=== PATIENT | female | born 1950 | race Caucasian/White ===

== ENCOUNTER 2018-07-08 21:27 | Inpatient (IN) | payer MEDICARE, OTHER ==
[~2018-07-08] VITALS: Ht 160 cm; Wt 72.3 kg
[~2018-07-08 21:27] MED LIST: ASPI-1265 PO; ATOR20TA66 PO; CEPH-571 PO; DOCU100C40 PO; FERR325T28 PO; FURO40TA4 PO; INSU100C4 SQ; LANTUS SQ; LISI-642 PO; LORA-512 PO; METO25TA6 PO; OMEP20CA10 PO; RIVA20TA PO; SODI453. PO; TRIA15CR61 TP; [UNRECOGNIZED DRUG - CODE] TP
[2018-07-08] MEDS ORDERED: CETI5TAB8 PO (22:12)
[2018-07-08] MEDS ORDERED: SEVE800T8 PO (22:12)
[2018-07-08] MEDS ORDERED: FURO80TA87 PO (22:12)
[2018-07-08] MEDS ORDERED: INSU100C10 SQ (22:12)
[2018-07-08] MEDS ORDERED: LANTUS SQ (22:12)
[2018-07-08] MEDS ORDERED: ACAR100T2 PO (22:12)
[2018-07-08] MEDS ORDERED: GABA-530 PO (22:12)
[2018-07-08] MEDS ORDERED: FOLI0.8T19 PO (22:12)
[2018-07-08] MEDS ORDERED: PANT-47 PO (22:12)
[2018-07-08] MEDS ORDERED: OLOP2.5D5 EACHEYE (22:12)
[2018-07-08] MEDS ORDERED: METO1TAB25 PO (22:12)
[2018-07-08] MEDS ORDERED: GENT30CR TOP (22:12)
[2018-07-08] MEDS ORDERED: AMLO-94 PO (22:12)
[2018-07-08] MEDS ORDERED: LOSA100T3 PO (22:12)
[2018-07-08] MEDS ORDERED: RIVA15TA PO (22:12)
[2018-07-08 22:33] LABS: BASOPHILS % (AUTO) 0.2 % (0-1); EOSINOPHILS # (AUTO) 0.3 X10'3 (0-0.9); EOSINOPHILS % (AUTO) 1.6 % (0-6); HEMATOCRIT 28.5 % (35.0-45.0); HEMOGLOBIN 9.4 g/dl (12.0-16.0); LYMPHOCYTES # (AUTO) 1.1 X10'3 (1.1-4.8); LYMPHOCYTES % (AUTO) 4.9 % (21-51); MEAN CORPUSCULAR HEMOGLOBIN 27.1 PG (27.0-31.0); MEAN CORPUSCULAR VOLUME 82.2 FL (78-98); MEAN PLATELET VOLUME 8.4 FL (7.4-10.4); MONOCYTES % (AUTO) 14.1 % (2-12); NEUTROPHILS # (AUTO) 17.1 X10'3 (1.8-7.7); NEUTROPHILS % (AUTO) 79.2 % (42-75); PLATELET COUNT 369 X10'3 (140-440); RED BLOOD COUNT 3.47 X10'6 (4.20-5.60); RED CELL DISTRIBUTION WIDTH 14.3 % (11.5-14.5); WHITE BLOOD COUNT 21.5 X10'3 (4.5-11.0)
[2018-07-08 22:50] LABS: ALANINE AMINOTRANSFERASE 18 U/L (12-78); ALBUMIN 2.2 G/DL (3.4-5.0); ALBUMIN/GLOBULIN RATIO 0.6 (1.1-1.5); ALKALINE PHOSPHATASE 88 IU/L (46-116); ANION GAP 22 (8-16); ASPARTATE AMINO TRANSFERASE 10 U/L (10-37); BILIRUBIN,TOTAL 0.3 MG/DL (0.1-1.0); BLOOD UREA NITROGEN 70 MG/DL (7-18); BUN/CREATININE RATIO 6.8 (6.6-38.0); CALCIUM 7.5 MG/DL (8.5-10.1); CHLORIDE 91 MMOL/L (99-107); CREATININE 10.23 MG/DL (0.40-0.90); GLUCOSE 175 MG/DL (70-104); POTASSIUM 3.8 MMOL/L (3.5-5.1); SODIUM 133 MMOL/L (135-145); TOTAL CARBON DIOXIDE 19.8 MMOL/L (24-32); TOTAL PROTEIN 6.2 G/DL (6.4-8.2); eGFR 4 ML/MIN
[2018-07-08 22:56] LABS: INR 1.2 INR; PROTHROMBIN TIME 12.1 SECONDS (9.0-12.0)
[2018-07-08 23:48] LABS: TOTAL CELLS COUNTED 100
[2018-07-08 23:49] LABS: PLATELET ESTIMATE NORMAL
[2018-07-09] MEDS ORDERED: piperacillin/tazo 3.375gm/50ml 50 ML IV ONE (02:10)
[2018-07-09] MEDS ORDERED: vancomycin/NS 1 GM ADD-VANTAGE 250 ML IV ONE (02:10)
[2018-07-09] MEDS ORDERED: iohexol 300mg/ml 100ml inj. ONE (02:44)
--- NOTE | 2018-07-09 04:22 | NUR ---
pt at ct
[2018-07-09] MEDS ORDERED: levoFLOXACIN-Levaquin 750MG/D5 150 ML IV STA (07:39)
[2018-07-09] MEDS ORDERED: acetaminophen 325mg tablet PO PRN (08:25)
--- NOTE | 2018-07-09 12:05 | NUR ---
first call to floor to give report. nurse will call back in 5-10"
[2018-07-09 12:31] LABS: CLARITY,URINE CLOUDY (Clear); COLOR,URINE BROWN (Yellow); UA COLLECTION TYPE CLN CATCH MIDSTREAM
[2018-07-09 12:32] LABS: GLUCOSE, URINE NEGATIVE (Neg); KETONES,URINE NEGATIVE (Neg); LEUKOCYTE ESTERASE ,URINE LARGE (Neg); NITRITES, URINE POSITIVE (Neg); OCCULT BLOOD,URINE LARGE (Neg); PROTEIN,URINE >=300 mg/dl (Neg)
[2018-07-09 12:39] LABS: WBC,URINE TNTC /HPF (0-4)
[2018-07-09 12:40] LABS: BACTERIA,URINE 4+ /HPF (Neg); MUCUS STRANDS MANY /LPF (Neg); SQUAMOUS EPITHELIAL CELL,UR NONE SEEN /LPF (FEW)
--- NOTE | 2018-07-09 12:58 | NUR ---
Bedside report received from RANDY Awad. Pt settled in bed, call light in reach, 3L O2 NC set up. Belongings left at bedside, contents unknown at this time. ER was unable to sort through them. Will assess pt belongings as able.
[2018-07-09 13:20] VITALS: BP 113/38
[2018-07-09] MEDS: ondansetron/PF 4mg/2ml inj IV PRN (13:48)
[2018-07-09] MEDS: AMMONIUM LACTATE TOP SCH (14:15)
[2018-07-09] MEDS: ferrous sulfate 325mg tablet PO SCH (17:04)
[2018-07-09] MEDS: acarbose 50mg tablet PO SCH (17:04)
[2018-07-09] MEDS ORDERED: MESSAGE TO PHARMACY PO ONE (17:50)
[2018-07-09] MEDS ORDERED: dextrose 50%-water 50ml dispensing syringe IV PRN ×2 (17:50)
[2018-07-09] MEDS ORDERED: glucagon, human recombinant 1mg kit SUBCUT PRN (17:50)
--- NOTE | 2018-07-09 17:50 | NUR ---
positive blood culture from left AC, gram negative rods in aerobic bottle from 07/09. Results called the Tonie KOROMA
--- NOTE | 2018-07-09 18:18 | NUR ---
Problems reprioritized. Patient report given, questions answered & plan of care reviewed with RANDY Uribe.
--- NOTE | 2018-07-09 18:19 | NUR ---
Patient in room [facility]. I have received report from MIGUEL PADILLA and had the opportunity to ask questions and assume patient care.
[2018-07-09 19:00] VITALS: BP 104/38
[2018-07-09 19:24] LABS: HEMOGLOBIN A1C 7.7 % (4.5-6.2)
[2018-07-09] MEDS ORDERED: metoprolol tartrate 12.5mg (1/2 tablet) PO SCH (20:00)
[2018-07-09] MEDS: losartan 50mg tablet PO SCH (20:00)
[2018-07-09] MEDS: triamcinolone acetonide 0.5% cream 15gm TP SCH (20:00)
[2018-07-09] MEDS: furosemide 40mg tablet PO SCH (20:00)
[2018-07-09] MEDS ORDERED: furosemide 40mg tablet PO SCH (21:00)
[2018-07-09] MEDS ORDERED: insulin glargine (Lantus) pen - multi-dose SQ SCH (21:00)
[2018-07-09] MEDS: insulin glargine (Lantus) pen - multi-dose SQ SCH (21:00)
[2018-07-09] MEDS: gabapentin 100mg capsule PO SCH (21:06)
[2018-07-09] MEDS: sevelamer carbonate 800mg tablet PO SCH (21:06)
[2018-07-09] MEDS: piperacillin/tazo 3.375gm/50ml 50 ML IV SCH (21:06)
--- NOTE | 2018-07-09 22:00 | NUR ---
Vaginal prolapse reduced with Rachael Rn,Pharmacy Technician Assistant, and Pt. tolerated procedure well.
--- NOTE | 2018-07-09 23:16 | NUR ---
Pt. diaphoretic, accu check 158.
[2018-07-10] VITALS: BP 97/46
[2018-07-10] MEDS: piperacillin/tazo 3.375gm/50ml 50 ML IV SCH ×4 (01:58→19:26)
[2018-07-10 05:23] LABS: BASOPHILS # (AUTO) 0.1 X10'3 (0-0.2); BASOPHILS % (AUTO) 0.3 % (0-1); EOSINOPHILS # (AUTO) 0.2 X10'3 (0-0.9); EOSINOPHILS % (AUTO) 1.1 % (0-6); HEMATOCRIT 31.3 % (35.0-45.0); HEMOGLOBIN 10.5 g/dl (12.0-16.0); LYMPHOCYTES # (AUTO) 0.9 X10'3 (1.1-4.8); LYMPHOCYTES % (AUTO) 4.7 % (21-51); MEAN CORPUSCULAR HEMOGLOBIN 27.7 PG (27.0-31.0); MEAN CORPUSCULAR HGB CONC 33.7 % (33.0-36.5); MEAN PLATELET VOLUME 8.9 FL (7.4-10.4); MONOCYTES # (AUTO) 2.5 X10'3 (0-0.9); MONOCYTES % (AUTO) 13.2 % (2-12); NEUTROPHILS # (AUTO) 15.5 X10'3 (1.8-7.7); NEUTROPHILS % (AUTO) 80.7 % (42-75); PLATELET COUNT 349 X10'3 (140-440); RED BLOOD COUNT 3.81 X10'6 (4.20-5.60); RED CELL DISTRIBUTION WIDTH 13.8 % (11.5-14.5); WHITE BLOOD COUNT 19.2 X10'3 (4.5-11.0)
[2018-07-10 05:55] LABS: ALANINE AMINOTRANSFERASE 17 U/L (12-78); ALBUMIN 1.8 G/DL (3.4-5.0); ALBUMIN/GLOBULIN RATIO 0.4 (1.1-1.5); ALKALINE PHOSPHATASE 103 IU/L (46-116); ANION GAP 22 (8-16); ASPARTATE AMINO TRANSFERASE 11 U/L (10-37); BILIRUBIN,TOTAL 0.4 MG/DL (0.1-1.0); BLOOD UREA NITROGEN 76 MG/DL (7-18); BUN/CREATININE RATIO 6.9 (6.6-38.0); CALCIUM 7.7 MG/DL (8.5-10.1); CHLORIDE 95 MMOL/L (99-107); CREATININE 11.07 MG/DL (0.40-0.90); GLUCOSE 146 MG/DL (70-104); MAGNESIUM 2.7 MG/DL (1.5-2.4); POTASSIUM 4.1 MMOL/L (3.5-5.1); SODIUM 137 MMOL/L (135-145); TOTAL CARBON DIOXIDE 19.7 MMOL/L (24-32); eGFR 3 ML/MIN
[2018-07-10 05:59] LABS: PLATELET ESTIMATE NORMAL; TOTAL CELLS COUNTED 100
--- NOTE | 2018-07-10 06:21 | NUR ---
Problems reprioritized. Patient report given, questions answered & plan of care reviewed with Winnie Zuñiga.
--- NOTE | 2018-07-10 06:52 | NUR ---
Patient in room [facility]. I have received report from RANDY Uribe and had the opportunity to ask questions and assume patient care.
[2018-07-10 07:00] VITALS: BP 107/52
[2018-07-10] MEDS ORDERED: non-formulary drug (Omeprazole 1 CAP) PO SCH (08:00)
[2018-07-10] MEDS ORDERED: lisinopril 20mg tablet PO SCH ×2 (08:00)
[2018-07-10] MEDS: triamcinolone acetonide 0.5% cream 15gm TP SCH ×2 (08:00→19:27)
[2018-07-10] MEDS: gentamicin 0.1% topical ointment 15gm TP SCH (08:00)
[2018-07-10] MEDS ORDERED: lisinopril 10 MG tablet PO SCH (08:00)
[2018-07-10] MEDS ORDERED: HYDROchlorothiazide 25mg tablet PO SCH (08:00)
[2018-07-10] MEDS ORDERED: cetirizine 10mg tablet PO SCH (08:00)
[2018-07-10] MEDS ORDERED: amLODIPine 5mg tablet PO SCH (08:00)
[2018-07-10] MEDS: AMMONIUM LACTATE TOP SCH (08:00)
[2018-07-10] MEDS ORDERED: metoprolol succinate 25mg (24-HOUR) SR. Tablet PO SCH (08:00)
[2018-07-10] MEDS ORDERED: docusate sod 100mg capsule PO SCH (08:00)
[2018-07-10] MEDS: losartan 50mg tablet PO SCH ×2 (08:00→19:27)
[2018-07-10 08:30] VITALS: BP 94/56
[2018-07-10] MEDS: ferrous sulfate 325mg tablet PO SCH ×2 (09:37→17:55)
[2018-07-10] MEDS: sevelamer carbonate 800mg tablet PO SCH ×3 (09:38→17:56)
[2018-07-10] MEDS: tetrahydrozoline 0.05% 15ml ophthalmic drops EACHEYE SCH (09:39)
[2018-07-10] MEDS: aspirin 81mg tab.chew PO SCH (09:40)
[2018-07-10] MEDS: loratadine 10mg tablet PO SCH (09:41)
[2018-07-10] MEDS: atorvastatin 20mg tablet PO SCH (09:44)
[2018-07-10] MEDS: acarbose 50mg tablet PO SCH ×3 (09:46→17:56)
[2018-07-10] MEDS: pantoprazole 40mg Tablet.DR PO SCH (09:46)
[2018-07-10] MEDS: rivaroxaban 15mg tablet PO SCH (09:47)
[2018-07-10] MEDS: folic acid/vitamin B complex w/vitamin C 0.8mg tablet PO SCH (09:50)
[2018-07-10] MEDS: furosemide 40mg tablet PO SCH ×2 (09:51→19:26)
[2018-07-10 11:05] LABS: LYMPHOCYTES,BODY FLUID 54 %; MONOCYTES,BODY FLUID 42 %; NEUTROPHILS,BODY FLUID 4 %
[2018-07-10 11:08] LABS: BF RBC COUNT 0 /CU MM; BF WBC COUNT 15 /CU MM (0-1000); BFAPPEAR CLEAR; BFCOLOR COLORLESS; BFVOLUME 45 ML
[2018-07-10 12:00] VITALS: BP 116/50
--- NOTE | 2018-07-10 13:08 | NUR ---
DM consult: A1C 7.7 hx ESRD receiving PD daily this admit. ESMER provided written/verbal DM ed w/ RD contact information. Encouraged attending CDE course. Pt declines additional questions at this time. Addendum: 07/10/18 at [address] Amended: Links added.
--- NOTE | 2018-07-10 18:00 | NUR ---
Problems reprioritized. Patient report given, questions answered & plan of care reviewed with RANDY Das.
--- NOTE | 2018-07-10 18:43 | NUR ---
Patient in room [facility]. I have received report from YANNA PADILLA and had the opportunity to ask questions and assume patient care. Addendum: 07/10/18 at 1843 by Pippa Ferrell RN Amended: Links added.
[2018-07-10] MEDS: insulin Lispro (HumaLOG) vial - multi-dose SQ SCH (19:22)
[2018-07-10] MEDS: lactobacillus rhamnosus 10,000 MMU CELLS/CAPSULE PO SCH (19:26)
[2018-07-10] MEDS: gabapentin 100mg capsule PO SCH (19:26)
[2018-07-10 19:30] VITALS: BP 115/50
--- NOTE | 2018-07-10 19:30 | NUR ---
pt inc of liq stool and skin care done and changed. tolerated well.
--- NOTE | 2018-07-10 21:00 | NUR ---
rn advice in to pt pt on her peritoneal dialysis at this time.
[2018-07-10] MEDS: insulin glargine (Lantus) pen - multi-dose SQ SCH (22:04)
--- NOTE | 2018-07-10 22:30 | NUR ---
pt inc of stool skin care done and noted after completed with new clean glove prolapsed uterus back into vag vault.
--- NOTE | 2018-07-10 23:29 | NUR ---
resting eyes closed without changes.
[2018-07-11] VITALS: BP 103/31
--- NOTE | 2018-07-11 00:22 | NUR ---
resting without changes at this time.
[2018-07-11] MEDS: piperacillin/tazo 3.375gm/50ml 50 ML IV SCH (01:53)
--- NOTE | 2018-07-11 02:15 | NUR ---
awoke briefly skin clean and dry abx infusing.
--- NOTE | 2018-07-11 04:15 | NUR ---
resting without changes. peritoneal dialysis continues.
--- NOTE | 2018-07-11 05:48 | NUR ---
resting without changes.
[2018-07-11 06:08] LABS: BASOPHILS % (AUTO) 0.3 % (0-1); EOSINOPHILS # (AUTO) 0.4 X10'3 (0-0.9); EOSINOPHILS % (AUTO) 2.3 % (0-6); HEMATOCRIT 30.1 % (35.0-45.0); HEMOGLOBIN 9.8 g/dl (12.0-16.0); LYMPHOCYTES # (AUTO) 0.8 X10'3 (1.1-4.8); LYMPHOCYTES % (AUTO) 4.6 % (21-51); MEAN CORPUSCULAR HGB CONC 32.5 % (33.0-36.5); MEAN CORPUSCULAR VOLUME 83.2 FL (78-98); MEAN PLATELET VOLUME 8.4 FL (7.4-10.4); MONOCYTES # (AUTO) 2.1 X10'3 (0-0.9); MONOCYTES % (AUTO) 12.9 % (2-12); NEUTROPHILS % (AUTO) 79.9 % (42-75); PLATELET COUNT 329 X10'3 (140-440); RED BLOOD COUNT 3.62 X10'6 (4.20-5.60); RED CELL DISTRIBUTION WIDTH 14.2 % (11.5-14.5); WHITE BLOOD COUNT 16.3 X10'3 (4.5-11.0)
[2018-07-11 06:28] LABS: ALANINE AMINOTRANSFERASE 14 U/L (12-78); ALBUMIN 1.7 G/DL (3.4-5.0); ALBUMIN/GLOBULIN RATIO 0.4 (1.1-1.5); ALKALINE PHOSPHATASE 71 IU/L (46-116); ANION GAP 19 (8-16); ASPARTATE AMINO TRANSFERASE 8 U/L (10-37); BILIRUBIN,TOTAL 0.3 MG/DL (0.1-1.0); BLOOD UREA NITROGEN 67 MG/DL (7-18); BUN/CREATININE RATIO 6.6 (6.6-38.0); CALCIUM 8.1 MG/DL (8.5-10.1); CHLORIDE 96 MMOL/L (99-107); CREATININE 10.16 MG/DL (0.40-0.90); GLUCOSE 254 MG/DL (70-104); MAGNESIUM 2.5 MG/DL (1.5-2.4); PHOSPHORUS 9.7 MG/DL (2.3-4.5); POTASSIUM 3.7 MMOL/L (3.5-5.1); SODIUM 136 MMOL/L (135-145); TOTAL CARBON DIOXIDE 21.3 MMOL/L (24-32); TOTAL PROTEIN 5.7 G/DL (6.4-8.2); eGFR 4 ML/MIN
--- NOTE | 2018-07-11 06:43 | NUR ---
Problems reprioritized. Patient report given, questions answered & plan of care reviewed with TALIA PADILLA. Addendum: 07/11/18 at 0643 by Pippa Ferrell RN Amended: Links added.
--- NOTE | 2018-07-11 07:06 | NUR ---
Patient in room [facility]. I have received report from Patricia PADILLA and had the opportunity to ask questions and assume patient care patient awake .
[2018-07-11] MEDS: gentamicin 0.1% topical ointment 15gm TP SCH ×2 (08:00→21:03)
[2018-07-11] MEDS: losartan 50mg tablet PO SCH ×2 (08:00→20:56)
[2018-07-11] MEDS: AMMONIUM LACTATE TOP SCH (08:00)
[2018-07-11 08:22] VITALS: BP 98/53
[2018-07-11] MEDS: insulin Lispro (HumaLOG) vial - multi-dose SQ SCH ×2 (08:41→13:22)
[2018-07-11] MEDS: acarbose 50mg tablet PO SCH ×3 (08:44→20:57)
[2018-07-11] MEDS: folic acid/vitamin B complex w/vitamin C 0.8mg tablet PO SCH (08:45)
[2018-07-11] MEDS: pantoprazole 40mg Tablet.DR PO SCH (08:45)
[2018-07-11] MEDS: atorvastatin 20mg tablet PO SCH (08:45)
[2018-07-11] MEDS: rivaroxaban 15mg tablet PO SCH (08:45)
[2018-07-11] MEDS: lactobacillus rhamnosus 10,000 MMU CELLS/CAPSULE PO SCH ×2 (08:45→20:56)
[2018-07-11] MEDS: ferrous sulfate 325mg tablet PO SCH ×2 (08:46→17:22)
[2018-07-11] MEDS: aspirin 81mg tab.chew PO SCH (08:46)
[2018-07-11] MEDS: loratadine 10mg tablet PO SCH (08:46)
[2018-07-11] MEDS: sevelamer carbonate 800mg tablet PO SCH ×3 (08:46→21:01)
[2018-07-11] MEDS: tetrahydrozoline 0.05% 15ml ophthalmic drops EACHEYE SCH (08:46)
[2018-07-11] MEDS ORDERED: levoFLOXACIN-Levaquin 250mg/D5 50 ML IV SCH (08:50)
[2018-07-11] MEDS: dextrose ORAL solution 15 GM/59 ML bottle PO PRN (17:04)
--- NOTE | 2018-07-11 18:47 | NUR ---
Patient in room [facility]. I have received report from TALIA PADILLA and had the opportunity to ask questions and assume patient care. Addendum: 07/11/18 at 1847 by Pippa Ferrell RN Amended: Links added.
[2018-07-11 19:30] VITALS: BP 124/42
--- NOTE | 2018-07-11 20:25 | NUR ---
pt inc of stool skin care done with bed changed and bedbath pt tolerated well. no s&s of distress at this time.
[2018-07-11] MEDS: gabapentin 100mg capsule PO SCH (20:56)
[2018-07-11] MEDS: insulin glargine (Lantus) pen - multi-dose SQ SCH (21:05)
--- NOTE | 2018-07-11 21:15 | NUR ---
dialysis nurse set pt up on peritoneal dialysis without problems.
--- NOTE | 2018-07-11 23:01 | NUR ---
incontinent of urine and pt skin care done and prolapsed uterus put back in. stayed in at this time.
[2018-07-12] VITALS: BP_SYST 108; BP_SYST 114; BP_DIAS 42; BP_DIAS 54
--- NOTE | 2018-07-12 00:11 | NUR ---
resting eyes closed without changes or s&s of distress. peritoneal dialysis running no difficulty
--- NOTE | 2018-07-12 02:10 | NUR ---
pt resting appears comfortable. no s&s of distress at this time.
--- NOTE | 2018-07-12 03:00 | NUR ---
repositioned resting without s&s of distress.
--- NOTE | 2018-07-12 03:20 | NUR ---
perineal dialysis machine read low volume drain and pt repositioned in bed machine reset and tubings checked and began draining again. pt vag uterus prolapsed and reduced in per orders with spike navarro. pt tolerated well.
--- NOTE | 2018-07-12 05:20 | NUR ---
dialysis on dwel 3 of 4 at this time. she is resting eyes closed without changes.
[2018-07-12 05:27] LABS: ALANINE AMINOTRANSFERASE 14 U/L (12-78); ALBUMIN 1.6 G/DL (3.4-5.0); ALBUMIN/GLOBULIN RATIO 0.4 (1.1-1.5); ALKALINE PHOSPHATASE 74 IU/L (46-116); ANION GAP 18 (8-16); ASPARTATE AMINO TRANSFERASE 11 U/L (10-37); BILIRUBIN,TOTAL 0.3 MG/DL (0.1-1.0); BLOOD UREA NITROGEN 62 MG/DL (7-18); BUN/CREATININE RATIO 6.6 (6.6-38.0); CALCIUM 7.3 MG/DL (8.5-10.1); CHLORIDE 96 MMOL/L (99-107); CREATININE 9.43 MG/DL (0.40-0.90); GLUCOSE 225 MG/DL (70-104); MAGNESIUM 2.2 MG/DL (1.5-2.4); PHOSPHORUS 8.9 MG/DL (2.3-4.5); POTASSIUM 3.7 MMOL/L (3.5-5.1); SODIUM 137 MMOL/L (135-145); TOTAL PROTEIN 5.6 G/DL (6.4-8.2); eGFR 4 ML/MIN
[2018-07-12 05:32] LABS: BASOPHILS % (AUTO) 0.3 % (0-1); EOSINOPHILS # (AUTO) 0.5 X10'3 (0-0.9); EOSINOPHILS % (AUTO) 3.2 % (0-6); HEMATOCRIT 29.4 % (35.0-45.0); HEMOGLOBIN 9.7 g/dl (12.0-16.0); LYMPHOCYTES # (AUTO) 0.7 X10'3 (1.1-4.8); LYMPHOCYTES % (AUTO) 5.1 % (21-51); MEAN CORPUSCULAR HEMOGLOBIN 27.1 PG (27.0-31.0); MEAN CORPUSCULAR HGB CONC 33.1 % (33.0-36.5); MEAN CORPUSCULAR VOLUME 82.1 FL (78-98); MEAN PLATELET VOLUME 8.5 FL (7.4-10.4); MONOCYTES # (AUTO) 1.9 X10'3 (0-0.9); MONOCYTES % (AUTO) 13.3 % (2-12); NEUTROPHILS # (AUTO) 11.4 X10'3 (1.8-7.7); NEUTROPHILS % (AUTO) 78.1 % (42-75); PLATELET COUNT 325 X10'3 (140-440); RED BLOOD COUNT 3.58 X10'6 (4.20-5.60); RED CELL DISTRIBUTION WIDTH 14.3 % (11.5-14.5); WHITE BLOOD COUNT 14.5 X10'3 (4.5-11.0)
--- NOTE | 2018-07-12 06:35 | NUR ---
Problems reprioritized. Patient report given, questions answered & plan of care reviewed with PURVI PADILLA. Addendum: 07/12/18 at 0635 by Pippa Ferrell RN Amended: Links added.
[2018-07-12 07:19] VITALS: BP 107/48
[2018-07-12] MEDS: rivaroxaban 15mg tablet PO SCH (07:32)
[2018-07-12] MEDS: folic acid/vitamin B complex w/vitamin C 0.8mg tablet PO SCH (07:32)
[2018-07-12] MEDS: lisinopril 20mg tablet PO SCH (07:34)
[2018-07-12] MEDS: lactobacillus rhamnosus 10,000 MMU CELLS/CAPSULE PO SCH ×2 (08:00→19:29)
[2018-07-12] MEDS: losartan 50mg tablet PO SCH ×2 (08:00→19:37)
[2018-07-12] MEDS: loratadine 10mg tablet PO SCH (08:00)
[2018-07-12] MEDS: atorvastatin 20mg tablet PO SCH (08:00)
[2018-07-12] MEDS: AMMONIUM LACTATE TOP SCH (08:00)
[2018-07-12] MEDS: sevelamer carbonate 800mg tablet PO SCH ×3 (08:06→17:37)
[2018-07-12] MEDS: aspirin 81mg tab.chew PO SCH (08:12)
[2018-07-12] MEDS: acarbose 50mg tablet PO SCH ×3 (08:12→17:39)
[2018-07-12] MEDS: ferrous sulfate 325mg tablet PO SCH ×2 (08:12→17:29)
[2018-07-12] MEDS: pantoprazole 40mg Tablet.DR PO SCH (08:12)
[2018-07-12] MEDS: tetrahydrozoline 0.05% 15ml ophthalmic drops EACHEYE SCH (09:03)
[2018-07-12] MEDS: insulin Lispro (HumaLOG) vial - multi-dose SQ SCH ×2 (09:05→13:29)
[2018-07-12 11:00] VITALS: BP 110/52
--- NOTE | 2018-07-12 14:42 | NUR ---
PT HAD A TEMP EARLIER OF 99.5 RECHECKED IT'S 100.1. SHE HAS AN ORDER FOR TYLENOL IF IT REACHES 101.0. WILL NOTIFY
--- NOTE | 2018-07-12 17:43 | NUR ---
Patient in room [facility]. I have received report from BENIGNO PADILLA and had the opportunity to ask questions and assume patient care.
--- NOTE | 2018-07-12 18:02 | NUR ---
GAVE REPORT TO JAGDISH
--- NOTE | 2018-07-12 18:30 | NUR ---
Patient in room [facility]. I have received report from Breanne PADILLA and had the opportunity to ask questions and assume patient care. Patient vomiting after finishing dinner, will provide medication and monitor.
[2018-07-12 19:15] VITALS: BP 114/53
[2018-07-12] MEDS: ondansetron/PF 4mg/2ml inj IV PRN (19:28)
[2018-07-12 19:38] VITALS: BP 104/48
[2018-07-12] MEDS: insulin glargine (Lantus) pen - multi-dose SQ SCH (20:52)
[2018-07-12] MEDS: gentamicin 0.1% topical ointment 15gm TP SCH (20:53)
[2018-07-12] MEDS: gabapentin 100mg capsule PO SCH (20:53)
[2018-07-12 23:00] VITALS: BP 109/58
--- NOTE | 2018-07-13 06:13 | NUR ---
Problems reprioritized. Patient report given, questions answered & plan of care reviewed with Olivia PADILLA, resting on right, respirations even, observed patient in no apparent distress.
[2018-07-13 06:34] LABS: BASOPHILS # (AUTO) 0.1 X10'3 (0-0.2); BASOPHILS % (AUTO) 0.4 % (0-1); EOSINOPHILS # (AUTO) 0.5 X10'3 (0-0.9); EOSINOPHILS % (AUTO) 3.2 % (0-6); HEMATOCRIT 31.9 % (35.0-45.0); HEMOGLOBIN 10.5 g/dl (12.0-16.0); LYMPHOCYTES % (AUTO) 7.1 % (21-51); MEAN CORPUSCULAR HEMOGLOBIN 27.4 PG (27.0-31.0); MEAN CORPUSCULAR HGB CONC 32.8 % (33.0-36.5); MEAN CORPUSCULAR VOLUME 83.6 FL (78-98); MEAN PLATELET VOLUME 8.7 FL (7.4-10.4); MONOCYTES # (AUTO) 1.7 X10'3 (0-0.9); MONOCYTES % (AUTO) 12.2 % (2-12); NEUTROPHILS # (AUTO) 10.8 X10'3 (1.8-7.7); NEUTROPHILS % (AUTO) 77.1 % (42-75); PLATELET COUNT 331 X10'3 (140-440); RED BLOOD COUNT 3.81 X10'6 (4.20-5.60); RED CELL DISTRIBUTION WIDTH 14.2 % (11.5-14.5); WHITE BLOOD COUNT 14.1 X10'3 (4.5-11.0)
[2018-07-13 06:39] LABS: ALANINE AMINOTRANSFERASE 12 U/L (12-78); ALBUMIN 1.7 G/DL (3.4-5.0); ALBUMIN/GLOBULIN RATIO 0.4 (1.1-1.5); ALKALINE PHOSPHATASE 76 IU/L (46-116); ANION GAP 16 (8-16); ASPARTATE AMINO TRANSFERASE 11 U/L (10-37); BILIRUBIN,TOTAL 0.3 MG/DL (0.1-1.0); BLOOD UREA NITROGEN 60 MG/DL (7-18); BUN/CREATININE RATIO 6.3 (6.6-38.0); CALCIUM 7.5 MG/DL (8.5-10.1); CHLORIDE 95 MMOL/L (99-107); GLUCOSE 258 MG/DL (70-104); MAGNESIUM 2.2 MG/DL (1.5-2.4); POTASSIUM 3.7 MMOL/L (3.5-5.1); SODIUM 135 MMOL/L (135-145); TOTAL CARBON DIOXIDE 24.5 MMOL/L (24-32); TOTAL PROTEIN 6.2 G/DL (6.4-8.2); eGFR 4 ML/MIN
--- NOTE | 2018-07-13 06:41 | NUR ---
Patient in room [facility]. I have received report from Maya PADILLA and had the opportunity to ask questions and assume patient care. Addendum: 07/13/18 at 0642 by Olivia Capellan RN Patient in room [facility]. I have received report from Valarie PADILLA and had the opportunity to ask questions and assume patient care.
[2018-07-13 07:00] VITALS: BP 120/38
[2018-07-13] MEDS: AMMONIUM LACTATE TOP SCH (08:00)
[2018-07-13] MEDS: lactobacillus rhamnosus 10,000 MMU CELLS/CAPSULE PO SCH ×2 (08:15→19:30)
[2018-07-13] MEDS: loratadine 10mg tablet PO SCH (08:16)
[2018-07-13] MEDS: atorvastatin 20mg tablet PO SCH (08:16)
[2018-07-13] MEDS: lisinopril 20mg tablet PO SCH (08:16)
[2018-07-13] MEDS: aspirin 81mg tab.chew PO SCH (08:16)
[2018-07-13] MEDS: rivaroxaban 15mg tablet PO SCH (08:16)
[2018-07-13] MEDS: folic acid/vitamin B complex w/vitamin C 0.8mg tablet PO SCH (08:16)
[2018-07-13] MEDS: pantoprazole 40mg Tablet.DR PO SCH (08:17)
[2018-07-13] MEDS: acarbose 50mg tablet PO SCH ×3 (08:17→17:52)
[2018-07-13] MEDS: losartan 50mg tablet PO SCH ×2 (08:17→19:30)
[2018-07-13] MEDS: tetrahydrozoline 0.05% 15ml ophthalmic drops EACHEYE SCH (08:17)
[2018-07-13] MEDS: ferrous sulfate 325mg tablet PO SCH ×2 (08:21→17:30)
[2018-07-13] MEDS: sevelamer carbonate 800mg tablet PO SCH ×3 (08:21→17:44)
[2018-07-13] MEDS: insulin Lispro (HumaLOG) vial - multi-dose SQ SCH ×2 (08:35→13:23)
[2018-07-13] MEDS: levoFLOXACIN 250mg tablet PO SCH (10:53)
[2018-07-13 11:00] VITALS: BP 115/48
--- NOTE | 2018-07-13 16:00 | NUR ---
patient seen by Dr Majano stated it is ok to give patient what she normally has at home for dose of lantus. Med rec showed and patient confirmed that she has 32u of lantus daily. DR Majano AWARE OF THIS.
[2018-07-13] MEDS: dextrose ORAL solution 15 GM/59 ML bottle PO PRN (17:29)
--- NOTE | 2018-07-13 17:32 | NUR ---
patients blood sugar at 1700 was 32. Given 30g glucose shot PO. will recheck in 15 mins
--- NOTE | 2018-07-13 18:30 | NUR ---
Patient in room [facility]. I have received report from Olivia PADILLA and had the opportunity to ask questions and assume patient care. Patient resting eating dinner after glucose provided due to low blood sugar. Will continue to monitor.
--- NOTE | 2018-07-13 18:45 | NUR ---
BS 81. patient comfortable eating dinner at time of report. Report given to Valarie PADILLA
[2018-07-13 20:00] VITALS: BP 133/55
[2018-07-13] MEDS: insulin glargine (Lantus) pen - multi-dose SQ SCH (22:27)
[2018-07-13] MEDS: gentamicin 0.1% topical ointment 15gm TP SCH (22:31)
[2018-07-13] MEDS: gabapentin 100mg capsule PO SCH (22:31)
[2018-07-14] VITALS: BP_SYST 116; BP_SYST 119; BP_DIAS 50; BP_DIAS 69
[2018-07-14 04:00] VITALS: BP 120/45
[2018-07-14 05:21] LABS: BASOPHILS % (AUTO) 0.3 % (0-1); EOSINOPHILS # (AUTO) 0.4 X10'3 (0-0.9); HEMATOCRIT 30.5 % (35.0-45.0); HEMOGLOBIN 10.2 g/dl (12.0-16.0); LYMPHOCYTES # (AUTO) 0.7 X10'3 (1.1-4.8); LYMPHOCYTES % (AUTO) 5.2 % (21-51); MEAN CORPUSCULAR HEMOGLOBIN 27.6 PG (27.0-31.0); MEAN CORPUSCULAR HGB CONC 33.4 % (33.0-36.5); MEAN CORPUSCULAR VOLUME 82.5 FL (78-98); MEAN PLATELET VOLUME 8.2 FL (7.4-10.4); MONOCYTES # (AUTO) 1.5 X10'3 (0-0.9); MONOCYTES % (AUTO) 10.7 % (2-12); NEUTROPHILS # (AUTO) 11.2 X10'3 (1.8-7.7); NEUTROPHILS % (AUTO) 80.8 % (42-75); PLATELET COUNT 310 X10'3 (140-440); RED BLOOD COUNT 3.69 X10'6 (4.20-5.60); RED CELL DISTRIBUTION WIDTH 13.7 % (11.5-14.5); WHITE BLOOD COUNT 13.8 X10'3 (4.5-11.0)
[2018-07-14 05:38] LABS: ALANINE AMINOTRANSFERASE 14 U/L (12-78); ALBUMIN 1.6 G/DL (3.4-5.0); ALBUMIN/GLOBULIN RATIO 0.4 (1.1-1.5); ALKALINE PHOSPHATASE 71 IU/L (46-116); ANION GAP 16 (8-16); ASPARTATE AMINO TRANSFERASE 9 U/L (10-37); BILIRUBIN,TOTAL 0.2 MG/DL (0.1-1.0); BLOOD UREA NITROGEN 55 MG/DL (7-18); BUN/CREATININE RATIO 6.5 (6.6-38.0); CALCIUM 7.2 MG/DL (8.5-10.1); CHLORIDE 93 MMOL/L (99-107); GLUCOSE 347 MG/DL (70-104); MAGNESIUM 1.9 MG/DL (1.5-2.4); PHOSPHORUS 6.8 MG/DL (2.3-4.5); POTASSIUM 3.2 MMOL/L (3.5-5.1); SODIUM 135 MMOL/L (135-145); TOTAL CARBON DIOXIDE 26.3 MMOL/L (24-32); TOTAL PROTEIN 5.7 G/DL (6.4-8.2); eGFR 5 ML/MIN
--- NOTE | 2018-07-14 06:30 | NUR ---
Patient in room [facility]. I have received report from Valarie PADILLA and had the opportunity to ask questions and assume patient care.
--- NOTE | 2018-07-14 06:30 | NUR ---
Patient in room [facility]. I have received report from Valarie PADILLA and had the opportunity to ask questions and assume patient care.
--- NOTE | 2018-07-14 06:30 | NUR ---
Problems reprioritized. Patient report given, questions answered & plan of care reviewed with Mauri RN. Patient on commode, will continue to monitor. Pulled IV that is . Spoke with Benita Castle NP prior in shift and received order to pull IV.
[2018-07-14 07:34] VITALS: BP 120/50
[2018-07-14] MEDS: AMMONIUM LACTATE TOP SCH (08:00)
[2018-07-14] MEDS: lisinopril 20mg tablet PO SCH (09:38)
[2018-07-14] MEDS: rivaroxaban 15mg tablet PO SCH (09:38)
[2018-07-14] MEDS: aspirin 81mg tab.chew PO SCH (09:39)
[2018-07-14] MEDS: atorvastatin 20mg tablet PO SCH (09:39)
[2018-07-14] MEDS: folic acid/vitamin B complex w/vitamin C 0.8mg tablet PO SCH (09:39)
[2018-07-14] MEDS: ferrous sulfate 325mg tablet PO SCH ×2 (09:40→17:22)
[2018-07-14] MEDS: pantoprazole 40mg Tablet.DR PO SCH (09:40)
[2018-07-14] MEDS: acarbose 50mg tablet PO SCH ×3 (09:41→17:45)
[2018-07-14] MEDS: sevelamer carbonate 800mg tablet PO SCH ×3 (09:41→17:37)
[2018-07-14] MEDS: tetrahydrozoline 0.05% 15ml ophthalmic drops EACHEYE SCH (09:42)
[2018-07-14] MEDS: losartan 50mg tablet PO SCH ×2 (09:42→20:00)
[2018-07-14] MEDS: loratadine 10mg tablet PO SCH (09:43)
[2018-07-14] MEDS: insulin Lispro (HumaLOG) vial - multi-dose SQ SCH ×2 (09:59→13:40)
[2018-07-14 11:00] VITALS: BP 119/50
[2018-07-14] MEDS: lactobacillus rhamnosus 10,000 MMU CELLS/CAPSULE PO SCH ×2 (13:49→20:32)
[2018-07-14] MEDS: levoFLOXACIN 250mg tablet PO SCH (13:49)
[2018-07-14] MEDS ORDERED: DEXT IP PRN (16:50)
[2018-07-14] MEDS ORDERED: PERIT DIALYSIS IP PRN (16:50)
--- NOTE | 2018-07-14 16:57 | NUR ---
Initial: Patient has good appetite eating 75-100% of renal carb controlled diet. Meeting nutrition needs at this time. Patient's phosphorus is elevated however is taking renvela with meals. Will continue to follow. Recommend: 1. Continue renal, carb controlled diet 2. Wt per rx Addendum: 07/14/18 at [address]én[address] Amended: Links added.
[2018-07-14] MEDS ORDERED: heparin 1,000unit/ml 10ml vial 5,000 UNITS in perit. dialysis 7 & dext 2.5% 6,000 ML IP PRN (17:10)
[2018-07-14] MEDS: dextrose ORAL solution 15 GM/59 ML bottle PO PRN (17:34)
[2018-07-14 18:30] VITALS: BP 130/50
--- NOTE | 2018-07-14 18:30 | NUR ---
Patient in room [facility]. I have received report from Mauri PADILLA and had the opportunity to ask questions and assume patient care. Patient finishing dinner, will continue to monitor.
--- NOTE | 2018-07-14 18:30 | NUR ---
Patient in room [facility]. I have received report from Mauri PADILLA and had the opportunity to ask questions and assume patient care. Patient eating dinner, appears in no distress.
--- NOTE | 2018-07-14 18:37 | NUR ---
Problems reprioritized. Patient report given, questions answered & plan of care reviewed with Valarie PADILLA.
[2018-07-14] MEDS: gentamicin 0.1% topical ointment 15gm TP SCH ×2 (19:30→21:56)
--- NOTE | 2018-07-14 19:30 | NUR ---
patient's dressing changed by dialysis nurse Deloris PADILLA. Will continue to monitor.
[2018-07-14] MEDS: gabapentin 100mg capsule PO SCH (21:56)
[2018-07-14] MEDS: insulin glargine (Lantus) pen - multi-dose SQ SCH (22:07)
--- NOTE | 2018-07-15 06:27 | NUR ---
Problems reprioritized. Patient report given, questions answered & plan of care reviewed with Mauri RN. Patient resting on right side with NC on.
[2018-07-15 07:56] VITALS: BP 119/47
[2018-07-15] MEDS: losartan 50mg tablet PO SCH ×2 (08:00→21:19)
[2018-07-15] MEDS: lactobacillus rhamnosus 10,000 MMU CELLS/CAPSULE PO SCH ×2 (09:11→21:18)
[2018-07-15] MEDS: loratadine 10mg tablet PO SCH (09:11)
[2018-07-15] MEDS: ferrous sulfate 325mg tablet PO SCH ×2 (09:11→17:57)
[2018-07-15] MEDS: acarbose 50mg tablet PO SCH ×3 (09:12→17:58)
[2018-07-15] MEDS: folic acid/vitamin B complex w/vitamin C 0.8mg tablet PO SCH (09:12)
[2018-07-15] MEDS: sevelamer carbonate 800mg tablet PO SCH ×3 (09:12→17:58)
[2018-07-15] MEDS: aspirin 81mg tab.chew PO SCH (09:13)
[2018-07-15] MEDS: pantoprazole 40mg Tablet.DR PO SCH (09:13)
[2018-07-15] MEDS: lisinopril 20mg tablet PO SCH (09:14)
[2018-07-15] MEDS: atorvastatin 20mg tablet PO SCH (09:14)
[2018-07-15] MEDS: tetrahydrozoline 0.05% 15ml ophthalmic drops EACHEYE SCH (09:15)
[2018-07-15] MEDS: rivaroxaban 15mg tablet PO SCH (09:19)
[2018-07-15] MEDS: insulin Lispro (HumaLOG) vial - multi-dose SQ SCH ×2 (09:27→13:39)
[2018-07-15 11:00] VITALS: BP 116/68
[2018-07-15] MEDS: levoFLOXACIN 250mg tablet PO SCH (11:53)
[2018-07-15 14:08] VITALS: BP 150/78
[2018-07-15] MEDS ORDERED: LANTUS SQ (15:30)
[2018-07-15] MEDS ORDERED: LISI-600 PO (15:30)
[2018-07-15] MEDS ORDERED: LEVO250T58 PO (15:30)
[2018-07-15] MEDS: dextrose ORAL solution 15 GM/59 ML bottle PO PRN (17:18)
[2018-07-15 18:00] VITALS: BP 125/47
--- NOTE | 2018-07-15 19:17 | NUR ---
Problems reprioritized. Patient report given, questions answered & plan of care reviewed with PAPO PADILLA. PATIENT TRAY WAS REMOVED AND ON COMING NURSE HAS PATIENTS CARB COUNT AT THIS TIME.
--- NOTE | 2018-07-15 19:18 | NUR ---
Patient in room [facility]. I have received report from RANDY Dotson and had the opportunity to ask questions and assume patient care.
[2018-07-15] MEDS: insulin glargine (Lantus) pen - multi-dose SQ SCH (21:00)
[2018-07-15] MEDS: gabapentin 100mg capsule PO SCH (21:18)
[2018-07-15] MEDS: gentamicin 0.1% topical ointment 15gm TP SCH (21:18)
[2018-07-16] VITALS: BP 121/45
--- NOTE | 2018-07-16 06:11 | NUR ---
Problems reprioritized. Patient report given, questions answered & plan of care reviewed with RANDY Gonzalez.
--- NOTE | 2018-07-16 06:52 | NUR ---
Patient in room [facility]. I have received report from Koby PADILLA and had the opportunity to ask questions and assume patient care.
[2018-07-16 07:49] VITALS: BP 119/51
[2018-07-16] MEDS: lisinopril 20mg tablet PO SCH (08:19)
[2018-07-16] MEDS: atorvastatin 20mg tablet PO SCH (08:19)
[2018-07-16] MEDS: lactobacillus rhamnosus 10,000 MMU CELLS/CAPSULE PO SCH ×2 (08:19→20:49)
[2018-07-16] MEDS: rivaroxaban 15mg tablet PO SCH (08:19)
[2018-07-16] MEDS: loratadine 10mg tablet PO SCH (08:19)
[2018-07-16] MEDS: aspirin 81mg tab.chew PO SCH (08:19)
[2018-07-16] MEDS: ferrous sulfate 325mg tablet PO SCH ×2 (08:19→17:13)
[2018-07-16] MEDS: pantoprazole 40mg Tablet.DR PO SCH (08:19)
[2018-07-16] MEDS: folic acid/vitamin B complex w/vitamin C 0.8mg tablet PO SCH (08:19)
[2018-07-16] MEDS: sevelamer carbonate 800mg tablet PO SCH ×3 (08:20→17:13)
[2018-07-16] MEDS: losartan 50mg tablet PO SCH ×2 (08:20→20:49)
[2018-07-16] MEDS: acarbose 50mg tablet PO SCH ×3 (08:20→17:13)
[2018-07-16] MEDS: tetrahydrozoline 0.05% 15ml ophthalmic drops EACHEYE SCH (08:20)
[2018-07-16] MEDS: insulin Lispro (HumaLOG) vial - multi-dose SQ SCH ×3 (09:11→18:50)
[2018-07-16] MEDS: levoFLOXACIN 250mg tablet PO SCH (11:22)
[2018-07-16 11:27] VITALS: BP 135/59
[2018-07-16] MEDS ORDERED: hydrocortisone acetate 25mg rectal suppository RC PRN (12:05)
--- NOTE | 2018-07-16 12:15 | NUR ---
Tonie Godwin informed of pt having urinary retention of 725 on bladder scan, only able to void 50-100ml and is distended. Also informed that uterus has been prolapsing frequently and will only stay reduced for a short period of time then prolapses again shortly after. Also informed of bleeding hemorrhoids. Tonie ordered to straight cath once and anusol cream for hemorrhoids and stated she will inform Dr. Majano of all discussed. Addendum: 07/16/18 at 1831 by Lisa Bell RN Tonie stated she would place order for hemorrhoid cream.
[2018-07-16] MEDS ORDERED: heparin 1,000unit/ml 10ml vial 5,000 UNITS in perit. dialysis 7 & dext 2.5% 6,000 ML IP PRN (16:27)
[2018-07-16 18:00] VITALS: BP 128/57
--- NOTE | 2018-07-16 18:30 | NUR ---
Problems reprioritized. Patient report given, questions answered & plan of care reviewed with Koby PADILLA.
--- NOTE | 2018-07-16 18:31 | NUR ---
Patient in room [facility]. I have received report from RANDY Gonzalez and had the opportunity to ask questions and assume patient care.
[2018-07-16] MEDS: gabapentin 100mg capsule PO SCH (20:50)
[2018-07-16] MEDS: insulin glargine (Lantus) pen - multi-dose SQ SCH (21:00)
[2018-07-16] MEDS: gentamicin 0.1% topical ointment 15gm TP SCH (21:08)
[2018-07-17] VITALS: BP 103/37
--- NOTE | 2018-07-17 06:05 | NUR ---
Problems reprioritized. Patient report given, questions answered & plan of care reviewed with RANDY Gonzalez.
--- NOTE | 2018-07-17 06:20 | NUR ---
Patient in room [facility]. I have received report from Koby PADILLA and had the opportunity to ask questions and assume patient care.
[2018-07-17 07:13] VITALS: BP 127/41
[2018-07-17] MEDS: ferrous sulfate 325mg tablet PO SCH ×2 (07:19→17:02)
[2018-07-17] MEDS: rivaroxaban 15mg tablet PO SCH (07:19)
[2018-07-17] MEDS: lactobacillus rhamnosus 10,000 MMU CELLS/CAPSULE PO SCH ×2 (07:19→21:17)
[2018-07-17] MEDS: pantoprazole 40mg Tablet.DR PO SCH (07:20)
[2018-07-17] MEDS: aspirin 81mg tab.chew PO SCH (07:20)
[2018-07-17] MEDS: losartan 50mg tablet PO SCH ×2 (07:20→21:17)
[2018-07-17] MEDS: acarbose 50mg tablet PO SCH ×3 (07:20→17:02)
[2018-07-17] MEDS: loratadine 10mg tablet PO SCH (07:20)
[2018-07-17] MEDS: folic acid/vitamin B complex w/vitamin C 0.8mg tablet PO SCH (07:20)
[2018-07-17] MEDS: tetrahydrozoline 0.05% 15ml ophthalmic drops EACHEYE SCH (07:20)
[2018-07-17] MEDS: lisinopril 20mg tablet PO SCH (07:20)
[2018-07-17] MEDS: sevelamer carbonate 800mg tablet PO SCH ×3 (07:20→17:02)
[2018-07-17] MEDS: atorvastatin 20mg tablet PO SCH (07:20)
[2018-07-17] MEDS: insulin Lispro (HumaLOG) vial - multi-dose SQ SCH ×2 (08:51→14:20)
[2018-07-17 11:06] VITALS: BP 112/42
[2018-07-17] MEDS ORDERED: HYDROCORTISONE 28.35 GM CREAM.GM. RC ONE (11:32)
[2018-07-17] MEDS ORDERED: clotrimazole topical cream 15gm tube TP ONE (11:39)
[2018-07-17] MEDS: levoFLOXACIN 250mg tablet PO SCH (11:49)
[2018-07-17] MEDS ORDERED: hydrocortisone 1% cream 28gm TP ONE (12:22)
[2018-07-17 12:37] LABS: CLARITY,URINE CLOUDY (Clear); COLOR,URINE YELLOW (Yellow); GLUCOSE, URINE 100 mg/dl (Neg); KETONES,URINE NEGATIVE (Neg); LEUKOCYTE ESTERASE ,URINE MODERATE (Neg); NITRITES, URINE NEGATIVE (Neg); OCCULT BLOOD,URINE LARGE (Neg); PROTEIN,URINE >=300 mg/dl (Neg); UROBILINOGEN,URINE 0.2 E.U/dL (0.2-1.0)
[2018-07-17 12:41] LABS: UA COLLECTION TYPE STRAIGHT CATH
[2018-07-17 12:45] LABS: BACTERIA,URINE 1+ /HPF (Neg); WBC,URINE TNTC /HPF (0-4)
[2018-07-17 12:46] LABS: SQUAMOUS EPITHELIAL CELL,UR FEW /LPF (FEW)
[2018-07-17] MEDS: dextrose ORAL solution 15 GM/59 ML bottle PO PRN (17:02)
--- NOTE | 2018-07-17 18:29 | NUR ---
Problems reprioritized. Patient report given, questions answered & plan of care reviewed with Maya PADILLA.
[2018-07-17 20:00] VITALS: BP 126/47
[2018-07-17] MEDS ORDERED: HYDROCORTISONE 28.35 GM CREAM.GM. RC SCH (20:00)
[2018-07-17] MEDS: gabapentin 100mg capsule PO SCH (21:17)
[2018-07-17] MEDS: clotrimazole topical cream 15gm tube TP SCH (21:18)
[2018-07-17] MEDS: gentamicin 0.1% topical ointment 15gm TP SCH (21:19)
[2018-07-17] MEDS: hydrocortisone 1% cream 28gm TP SCH (21:20)
[2018-07-17] MEDS: insulin glargine (Lantus) pen - multi-dose SQ SCH (22:35)
[2018-07-18] VITALS: BP 128/43
--- NOTE | 2018-07-18 06:21 | NUR ---
Problems reprioritized. Patient report given, questions answered & plan of care reviewed with Laila PADILLA. Addendum: 07/18/18 at 0632 by Kelsi Katz RN Ernie holder
--- NOTE | 2018-07-18 06:30 | NUR ---
Patient in room [facility]. I have received report from RANDY Trejo and had the opportunity to ask questions and assume patient care.
[2018-07-18 07:00] VITALS: BP 127/47
[2018-07-18] MEDS: rivaroxaban 15mg tablet PO SCH (08:55)
[2018-07-18] MEDS: loratadine 10mg tablet PO SCH (08:55)
[2018-07-18] MEDS: atorvastatin 20mg tablet PO SCH (08:56)
[2018-07-18] MEDS: losartan 50mg tablet PO SCH ×2 (08:56→20:55)
[2018-07-18] MEDS: lactobacillus rhamnosus 10,000 MMU CELLS/CAPSULE PO SCH ×2 (08:56→20:55)
[2018-07-18] MEDS: aspirin 81mg tab.chew PO SCH (08:56)
[2018-07-18] MEDS: lisinopril 20mg tablet PO SCH (08:56)
[2018-07-18] MEDS: pantoprazole 40mg Tablet.DR PO SCH (08:56)
[2018-07-18] MEDS: folic acid/vitamin B complex w/vitamin C 0.8mg tablet PO SCH (08:56)
[2018-07-18] MEDS: hydrocortisone 1% cream 28gm TP SCH ×2 (08:57→20:59)
[2018-07-18] MEDS: sevelamer carbonate 800mg tablet PO SCH ×3 (08:57→17:29)
[2018-07-18] MEDS: tetrahydrozoline 0.05% 15ml ophthalmic drops EACHEYE SCH (08:57)
[2018-07-18] MEDS: clotrimazole topical cream 15gm tube TP SCH ×2 (08:57→20:59)
[2018-07-18] MEDS: acarbose 50mg tablet PO SCH ×3 (08:57→17:29)
[2018-07-18] MEDS: insulin Lispro (HumaLOG) vial - multi-dose SQ SCH ×3 (09:03→19:00)
[2018-07-18] MEDS: ferrous sulfate 325mg tablet PO SCH ×2 (09:13→17:29)
[2018-07-18] MEDS: levoFLOXACIN 250mg tablet PO SCH (10:59)
[2018-07-18 11:00] VITALS: BP 139/54
--- NOTE | 2018-07-18 11:56 | NUR ---
reassessment: Pt PO decreased to 25% breakfast AM from 75-100% previous. Hemorrhoids w/ large BM noted today first large BM since 07/12 documented. No additional GI symptoms. Will continue to monitor. Recommend: 1. Continue renal, carb controlled diet 2. Wt per rx Addendum: 07/18/18 at [address] Amended: Links added.
--- NOTE | 2018-07-18 12:57 | NUR ---
Small amount of blood in urine. MD aware. No orders received.
--- NOTE | 2018-07-18 18:40 | NUR ---
Problems reprioritized. Patient report given, questions answered & plan of care reviewed with RANDY Rodriguez.
[2018-07-18 19:00] VITALS: BP 138/50
[2018-07-18] MEDS: gabapentin 100mg capsule PO SCH (20:55)
[2018-07-18] MEDS: dextrose ORAL solution 15 GM/59 ML bottle PO PRN (20:55)
[2018-07-18] MEDS: insulin glargine (Lantus) pen - multi-dose SQ SCH (21:00)
[2018-07-18] MEDS: gentamicin 0.1% topical ointment 15gm TP SCH (21:58)
[2018-07-19] VITALS: BP 109/48
--- NOTE | 2018-07-19 06:15 | NUR ---
Problems reprioritized. Patient report given, questions answered & plan of care reviewed with RANDY Raymundo. Addendum: 07/19/18 at 0616 by Jennifer Vail RN Amended: Links added.
--- NOTE | 2018-07-19 06:52 | NUR ---
Patient in room [facility]. I have received report from ALEXANDER PADILLA and had the opportunity to ask questions and assume patient care.
[2018-07-19 07:00] VITALS: BP 112/50
[2018-07-19] MEDS: acarbose 50mg tablet PO SCH ×3 (07:49→17:43)
[2018-07-19] MEDS: losartan 50mg tablet PO SCH ×2 (07:49→21:14)
[2018-07-19] MEDS: ferrous sulfate 325mg tablet PO SCH ×2 (07:50→17:41)
[2018-07-19] MEDS: loratadine 10mg tablet PO SCH (07:50)
[2018-07-19] MEDS: atorvastatin 20mg tablet PO SCH (07:50)
[2018-07-19] MEDS: sevelamer carbonate 800mg tablet PO SCH ×3 (07:50→17:41)
[2018-07-19] MEDS: pantoprazole 40mg Tablet.DR PO SCH (07:50)
[2018-07-19] MEDS: lisinopril 20mg tablet PO SCH (07:51)
[2018-07-19] MEDS: rivaroxaban 15mg tablet PO SCH (07:51)
[2018-07-19] MEDS: aspirin 81mg tab.chew PO SCH (07:51)
[2018-07-19] MEDS: lactobacillus rhamnosus 10,000 MMU CELLS/CAPSULE PO SCH ×2 (07:51→21:14)
[2018-07-19] MEDS: folic acid/vitamin B complex w/vitamin C 0.8mg tablet PO SCH (07:51)
[2018-07-19] MEDS: tetrahydrozoline 0.05% 15ml ophthalmic drops EACHEYE SCH (07:54)
[2018-07-19] MEDS: clotrimazole topical cream 15gm tube TP SCH ×2 (08:00→21:15)
[2018-07-19] MEDS: hydrocortisone 1% cream 28gm TP SCH ×2 (08:00→21:15)
[2018-07-19] MEDS: insulin Lispro (HumaLOG) vial - multi-dose SQ SCH ×3 (10:04→18:46)
[2018-07-19 11:00] VITALS: BP 104/35
--- NOTE | 2018-07-19 14:10 | NUR ---
gave afternoon meds late. pt unavailable
[2018-07-19] MEDS: levoFLOXACIN 250mg tablet PO SCH (14:13)
--- NOTE | 2018-07-19 18:11 | NUR ---
Problems reprioritized. Patient report given, questions answered & plan of care reviewed with ALEXANDER PADILLA.
--- NOTE | 2018-07-19 19:40 | NUR ---
Patient in room [facility]. I have received report from RANDY Raymundo and had the opportunity to ask questions and assume patient care. Addendum: 07/19/18 at 1940 by Jennifer Vail RN Amended: Links added.
[2018-07-19 20:00] VITALS: BP 106/45
[2018-07-19] MEDS: gentamicin 0.1% topical ointment 15gm TP SCH (21:00)
[2018-07-19] MEDS: insulin glargine (Lantus) pen - multi-dose SQ SCH (21:00)
[2018-07-19] MEDS: gabapentin 100mg capsule PO SCH (21:14)
[2018-07-20] VITALS: BP 110/52
--- NOTE | 2018-07-20 03:35 | NUR ---
Patient in room [facility]. I have received report from RANDY Raymundo and had the opportunity to ask questions and assume patient care. Addendum: 07/20/18 at 0336 by Jennifer Vail RN Amended: Links added.
--- NOTE | 2018-07-20 06:11 | NUR ---
Problems reprioritized. Patient report given, questions answered & plan of care reviewed with RANDY Raymundo. Addendum: 07/20/18 at 0611 by Jennifer Vail RN Amended: Links added.
[2018-07-20 07:00] VITALS: BP 123/50
[2018-07-20] MEDS: ferrous sulfate 325mg tablet PO SCH ×2 (07:00→17:25)
[2018-07-20] MEDS: atorvastatin 20mg tablet PO SCH (08:24)
[2018-07-20] MEDS: acarbose 50mg tablet PO SCH ×3 (08:25→17:31)
[2018-07-20] MEDS: loratadine 10mg tablet PO SCH (08:25)
[2018-07-20] MEDS: losartan 50mg tablet PO SCH ×2 (08:25→19:50)
[2018-07-20] MEDS: sevelamer carbonate 800mg tablet PO SCH ×3 (08:25→17:31)
[2018-07-20] MEDS: aspirin 81mg tab.chew PO SCH (08:25)
[2018-07-20] MEDS: lactobacillus rhamnosus 10,000 MMU CELLS/CAPSULE PO SCH ×2 (08:25→19:50)
[2018-07-20] MEDS: rivaroxaban 15mg tablet PO SCH (08:25)
[2018-07-20] MEDS: folic acid/vitamin B complex w/vitamin C 0.8mg tablet PO SCH (08:25)
[2018-07-20] MEDS: tetrahydrozoline 0.05% 15ml ophthalmic drops EACHEYE SCH (08:25)
[2018-07-20] MEDS: pantoprazole 40mg Tablet.DR PO SCH (08:25)
[2018-07-20] MEDS: lisinopril 20mg tablet PO SCH (08:25)
[2018-07-20] MEDS: clotrimazole topical cream 15gm tube TP SCH ×2 (08:26→20:00)
[2018-07-20] MEDS: hydrocortisone 1% cream 28gm TP SCH ×2 (08:26→20:00)
[2018-07-20 09:25] LABS: ALANINE AMINOTRANSFERASE 33 U/L (12-78); ALBUMIN/GLOBULIN RATIO 0.5 (1.1-1.5); ALKALINE PHOSPHATASE 148 IU/L (46-116); ANION GAP 17 (8-16); ASPARTATE AMINO TRANSFERASE 24 U/L (10-37); BILIRUBIN,TOTAL 0.3 MG/DL (0.1-1.0); BLOOD UREA NITROGEN 59 MG/DL (7-18); BUN/CREATININE RATIO 7.2 (6.6-38.0); CALCIUM 7.8 MG/DL (8.5-10.1); CHLORIDE 98 MMOL/L (99-107); CREATININE 8.23 MG/DL (0.40-0.90); GLUCOSE 174 MG/DL (70-104); MAGNESIUM 1.7 MG/DL (1.5-2.4); PHOSPHORUS 6.1 MG/DL (2.3-4.5); SODIUM 141 MMOL/L (135-145); TOTAL PROTEIN 6.4 G/DL (6.4-8.2); eGFR 5 ML/MIN
--- NOTE | 2018-07-20 09:29 | NUR ---
Notified RANDY Raymundo of pt's K=3.0 per lab.
[2018-07-20 09:32] LABS: BASOPHILS % (AUTO) 0.2 % (0-1); EOSINOPHILS # (AUTO) 0.2 X10'3 (0-0.9); EOSINOPHILS % (AUTO) 1.6 % (0-6); HEMATOCRIT 33.2 % (35.0-45.0); HEMOGLOBIN 10.5 g/dl (12.0-16.0); LYMPHOCYTES # (AUTO) 0.9 X10'3 (1.1-4.8); LYMPHOCYTES % (AUTO) 6.6 % (21-51); MEAN CORPUSCULAR HEMOGLOBIN 26.6 PG (27.0-31.0); MEAN CORPUSCULAR HGB CONC 31.7 % (33.0-36.5); MEAN PLATELET VOLUME 8.1 FL (7.4-10.4); MONOCYTES # (AUTO) 1.6 X10'3 (0-0.9); NEUTROPHILS # (AUTO) 11.6 X10'3 (1.8-7.7); NEUTROPHILS % (AUTO) 80.6 % (42-75); PLATELET COUNT 329 X10'3 (140-440); RED BLOOD COUNT 3.95 X10'6 (4.20-5.60); RED CELL DISTRIBUTION WIDTH 14.3 % (11.5-14.5); WHITE BLOOD COUNT 14.3 X10'3 (4.5-11.0)
[2018-07-20] MEDS: insulin Lispro (HumaLOG) vial - multi-dose SQ SCH ×3 (09:34→19:41)
--- NOTE | 2018-07-20 09:35 | NUR ---
phoned seasonal package handler reagarding critical potassium
[2018-07-20] MEDS ORDERED: potassium Cl 20 mEq SR tablet PO STA (09:45)
--- NOTE | 2018-07-20 09:46 | NUR ---
DR GARCIA RETURNED CALL ON CRITICAL K+. ORDERS GIVE ONCE DOSE OF 40MEQ kdur
[2018-07-20] MEDS: levoFLOXACIN 250mg tablet PO SCH (10:06)
[2018-07-20 11:00] VITALS: BP 124/62
--- NOTE | 2018-07-20 17:57 | NUR ---
RECEIVED REPORT FROM ALEXANDER PADILLA
--- NOTE | 2018-07-20 18:09 | NUR ---
GAVE REPORT TO SHAKA PADILLA
--- NOTE | 2018-07-20 18:58 | NUR ---
Patient in room [facility]. I have received report from Breanne PADILLA and had the opportunity to ask questions and assume patient care.
[2018-07-20 19:00] VITALS: BP 131/50
[2018-07-20 19:50] VITALS: BP 123/43
[2018-07-20] MEDS: insulin glargine (Lantus) pen - multi-dose SQ SCH (21:00)
[2018-07-20] MEDS: gentamicin 0.1% topical ointment 15gm TP SCH (21:00)
[2018-07-20 23:30] VITALS: BP 129/72
[2018-07-21] MEDS: gabapentin 100mg capsule PO SCH ×2 (00:37→22:31)
--- NOTE | 2018-07-21 07:00 | NUR ---
Problems reprioritized. Patient report given, questions answered & plan of care reviewed with Modesta PADILLA.
[2018-07-21] MEDS ORDERED: LIDOcaine 1% (10mg/ml) 2ml vial SQ ONE (08:00)
[2018-07-21] MEDS: lisinopril 20mg tablet PO SCH (08:00)
[2018-07-21] MEDS ORDERED: normal saline 1000ml 250 ML IV PRN (08:00)
[2018-07-21] MEDS: folic acid/vitamin B complex w/vitamin C 0.8mg tablet PO SCH (08:33)
[2018-07-21] MEDS: acarbose 50mg tablet PO SCH ×3 (08:33→17:10)
[2018-07-21] MEDS: lactobacillus rhamnosus 10,000 MMU CELLS/CAPSULE PO SCH ×2 (08:34→22:32)
[2018-07-21] MEDS: pantoprazole 40mg Tablet.DR PO SCH (08:34)
[2018-07-21] MEDS: losartan 50mg tablet PO SCH ×2 (08:34→22:31)
[2018-07-21] MEDS: rivaroxaban 15mg tablet PO SCH (08:34)
[2018-07-21] MEDS: aspirin 81mg tab.chew PO SCH (08:34)
[2018-07-21] MEDS: loratadine 10mg tablet PO SCH (08:35)
[2018-07-21] MEDS: sevelamer carbonate 800mg tablet PO SCH ×3 (08:35→17:11)
[2018-07-21] MEDS: tetrahydrozoline 0.05% 15ml ophthalmic drops EACHEYE SCH (08:36)
[2018-07-21] MEDS: ferrous sulfate 325mg tablet PO SCH ×2 (08:39→17:11)
[2018-07-21] MEDS: atorvastatin 20mg tablet PO SCH (08:41)
[2018-07-21] MEDS: hydrocortisone 1% cream 28gm TP SCH ×2 (08:41→22:33)
[2018-07-21] MEDS: clotrimazole topical cream 15gm tube TP SCH ×2 (08:41→22:33)
[2018-07-21] MEDS: levoFLOXACIN 250mg tablet PO SCH (11:53)
[2018-07-21 12:14] VITALS: BP 132/51
[2018-07-21] MEDS: insulin Lispro (HumaLOG) vial - multi-dose SQ SCH (13:39)
--- NOTE | 2018-07-21 17:08 | NUR ---
no peritoneal charge for 07/20. entered by floor nurse Addendum: 07/21/18 at 1709 by Ira WHEELER RN Amended: Links added.
--- NOTE | 2018-07-21 18:19 | NUR ---
Patient in room [facility]. I have received report from Modesta PADILLA and had the opportunity to ask questions and assume patient care.
--- NOTE | 2018-07-21 18:30 | NUR ---
Patient in room [facility]. I have received report from Modesta PADILLA and had the opportunity to ask questions and assume patient care.
--- NOTE | 2018-07-21 18:30 | NUR ---
Patient currently receiving her first HD. HD nurse in room. Patient lying in bed with her eyes closed,in no pain or distress. Addendum: 07/22/18 at 0047 by Karli Shabazz RN Patients accu check was for 134 at dinner time, however, patients dinner presently on hold until after dialysis completed.
[2018-07-21 19:30] VITALS: BP 127/76
[2018-07-21] MEDS: insulin glargine (Lantus) pen - multi-dose SQ SCH (21:00)
[2018-07-22] VITALS: BP 127/72
[2018-07-22] MEDS: gentamicin 0.1% topical ointment 15gm TP SCH ×2 (01:28→20:53)
--- NOTE | 2018-07-22 06:30 | NUR ---
Problems reprioritized. Patient report given, questions answered & plan of care reviewed with Shilpa Zuñiga.
[2018-07-22 07:40] VITALS: BP 121/50
[2018-07-22] MEDS: insulin Lispro (HumaLOG) vial - multi-dose SQ SCH (08:46)
[2018-07-22] MEDS: tetrahydrozoline 0.05% 15ml ophthalmic drops EACHEYE SCH (08:50)
[2018-07-22] MEDS: lactobacillus rhamnosus 10,000 MMU CELLS/CAPSULE PO SCH ×2 (08:51→20:53)
[2018-07-22] MEDS: folic acid/vitamin B complex w/vitamin C 0.8mg tablet PO SCH (08:51)
[2018-07-22] MEDS: acarbose 50mg tablet PO SCH ×3 (08:51→17:23)
[2018-07-22] MEDS: aspirin 81mg tab.chew PO SCH (08:51)
[2018-07-22] MEDS: atorvastatin 20mg tablet PO SCH (08:52)
[2018-07-22] MEDS: loratadine 10mg tablet PO SCH (08:52)
[2018-07-22] MEDS: losartan 50mg tablet PO SCH ×2 (08:52→20:00)
[2018-07-22] MEDS: pantoprazole 40mg Tablet.DR PO SCH (08:52)
[2018-07-22] MEDS: lisinopril 20mg tablet PO SCH (08:52)
[2018-07-22] MEDS: rivaroxaban 15mg tablet PO SCH (08:53)
[2018-07-22] MEDS: sevelamer carbonate 800mg tablet PO SCH ×3 (08:55→17:23)
[2018-07-22] MEDS: ferrous sulfate 325mg tablet PO SCH ×2 (08:55→17:23)
[2018-07-22] MEDS: hydrocortisone 1% cream 28gm TP SCH ×2 (08:56→20:54)
[2018-07-22] MEDS: clotrimazole topical cream 15gm tube TP SCH ×2 (08:56→20:54)
[2018-07-22] MEDS: levoFLOXACIN 250mg tablet PO SCH (10:54)
--- NOTE | 2018-07-22 11:02 | NUR ---
Reassessment: Documented PO intake fluctuates however has significantly increased with average intake mostly 75-100% meeting nutrient needs. [facility] 07/22. Will continue to follow. Recommend: 1. Continue renal, carb controlled diet 2. Wt per rx Addendum: 07/22/18 at [address] Amended: Links added.
[2018-07-22 12:20] VITALS: BP 101/59
--- NOTE | 2018-07-22 14:21 | NUR ---
DISCONTINUED HYPER/HYPO GLYCEMIA PROTOCOL PER DR GARCIA. PATIENT IS RECEIVING ACARBOSE PO.
[2018-07-22 18:00] VITALS: BP 117/50
--- NOTE | 2018-07-22 18:33 | NUR ---
Problems reprioritized. Patient report given, questions answered & plan of care reviewed with RANDY Whalen.
--- NOTE | 2018-07-22 18:40 | NUR ---
Problems reprioritized. Patient report given, questions answered & plan of care reviewed with RANDY Whalen.
--- NOTE | 2018-07-22 18:41 | NUR ---
Patient in room [facility]. I have received report from RANDY Salazar and had the opportunity to ask questions and assume patient care.
[2018-07-22] MEDS: gabapentin 100mg capsule PO SCH (20:53)
[2018-07-23] VITALS: BP 126/51
[2018-07-23] MEDS: ondansetron 4mg rapidly disintigrating tab PO PRN ×2 (05:24→23:42)
--- NOTE | 2018-07-23 06:22 | NUR ---
Problems reprioritized. Patient report given, questions answered & plan of care reviewed with RANDY Hernandez.
--- NOTE | 2018-07-23 06:45 | NUR ---
Patient in room [facility]. I have received report from Koby PADILLA and had the opportunity to ask questions and assume patient care.
[2018-07-23] MEDS: ferrous sulfate 325mg tablet PO SCH ×2 (07:00→17:46)
[2018-07-23 07:05] VITALS: BP 119/48
[2018-07-23] MEDS ORDERED: normal saline 1000ml 250 ML IV PRN (08:00)
[2018-07-23] MEDS: LIDOcaine 1% (10mg/ml) 2ml vial SQ ONE ×2 (08:00→18:24)
[2018-07-23] MEDS: acarbose 50mg tablet PO SCH ×3 (08:23→17:47)
[2018-07-23] MEDS: folic acid/vitamin B complex w/vitamin C 0.8mg tablet PO SCH (08:23)
[2018-07-23] MEDS: sevelamer carbonate 800mg tablet PO SCH ×3 (08:23→17:46)
[2018-07-23] MEDS: pantoprazole 40mg Tablet.DR PO SCH (08:24)
[2018-07-23] MEDS: aspirin 81mg tab.chew PO SCH (08:24)
[2018-07-23] MEDS: lactobacillus rhamnosus 10,000 MMU CELLS/CAPSULE PO SCH ×2 (08:24→22:42)
[2018-07-23] MEDS: loratadine 10mg tablet PO SCH (08:24)
[2018-07-23] MEDS: losartan 50mg tablet PO SCH ×2 (08:24→22:42)
[2018-07-23] MEDS: rivaroxaban 15mg tablet PO SCH (08:24)
[2018-07-23] MEDS: lisinopril 20mg tablet PO SCH (08:24)
[2018-07-23] MEDS: atorvastatin 20mg tablet PO SCH (08:24)
[2018-07-23] MEDS: tetrahydrozoline 0.05% 15ml ophthalmic drops EACHEYE SCH (08:25)
[2018-07-23] MEDS: hydrocortisone 1% cream 28gm TP SCH ×2 (08:26→22:43)
[2018-07-23] MEDS: clotrimazole topical cream 15gm tube TP SCH ×2 (08:26→22:43)
[2018-07-23 11:33] VITALS: BP 129/53
[2018-07-23] MEDS: levoFLOXACIN 250mg tablet PO SCH (12:10)
--- NOTE | 2018-07-23 18:20 | NUR ---
Patient in room [facility]. I have received report from Mary PADILLA and had the opportunity to ask questions and assume patient care.
--- NOTE | 2018-07-23 18:20 | NUR ---
Problems reprioritized. Patient report given,Meliton PADILLA questions answered & plan of care reviewed with . Dialysis nurse at bedside
[2018-07-23 19:00] VITALS: BP 123/55
[2018-07-23] MEDS: gabapentin 100mg capsule PO SCH (22:42)
[2018-07-23] MEDS: gentamicin 0.1% topical ointment 15gm TP SCH (22:43)
[2018-07-24] VITALS: BP 105/46
[2018-07-24 05:32] LABS: BASOPHILS % (AUTO) 0.2 % (0-1); EOSINOPHILS # (AUTO) 0.2 X10'3 (0-0.9); EOSINOPHILS % (AUTO) 1.5 % (0-6); HEMOGLOBIN 10.1 g/dl (12.0-16.0); LYMPHOCYTES # (AUTO) 0.9 X10'3 (1.1-4.8); LYMPHOCYTES % (AUTO) 6.7 % (21-51); MEAN CORPUSCULAR HEMOGLOBIN 26.2 PG (27.0-31.0); MEAN CORPUSCULAR HGB CONC 31.6 % (33.0-36.5); MEAN CORPUSCULAR VOLUME 82.8 FL (78-98); MEAN PLATELET VOLUME 8.2 FL (7.4-10.4); MONOCYTES # (AUTO) 1.5 X10'3 (0-0.9); MONOCYTES % (AUTO) 10.4 % (2-12); NEUTROPHILS # (AUTO) 11.5 X10'3 (1.8-7.7); NEUTROPHILS % (AUTO) 81.2 % (42-75); PLATELET COUNT 337 X10'3 (140-440); RED BLOOD COUNT 3.86 X10'6 (4.20-5.60); RED CELL DISTRIBUTION WIDTH 14.2 % (11.5-14.5); WHITE BLOOD COUNT 14.1 X10'3 (4.5-11.0)
[2018-07-24 05:53] LABS: ALANINE AMINOTRANSFERASE 30 U/L (12-78); ALBUMIN/GLOBULIN RATIO 0.5 (1.1-1.5); ALKALINE PHOSPHATASE 128 IU/L (46-116); ANION GAP 7 (8-16); ASPARTATE AMINO TRANSFERASE 20 U/L (10-37); BILIRUBIN,TOTAL 0.3 MG/DL (0.1-1.0); BLOOD UREA NITROGEN 27 MG/DL (7-18); BUN/CREATININE RATIO 6.7 (6.6-38.0); CALCIUM 7.6 MG/DL (8.5-10.1); CHLORIDE 100 MMOL/L (99-107); CREATININE 4.01 MG/DL (0.40-0.90); GLUCOSE 135 MG/DL (70-104); POTASSIUM 5.1 MMOL/L (3.5-5.1); SODIUM 137 MMOL/L (135-145); TOTAL PROTEIN 5.9 G/DL (6.4-8.2); eGFR 11 ML/MIN
--- NOTE | 2018-07-24 06:15 | NUR ---
Patient in room [facility]. I have received report from Jordana PADILLA and had the opportunity to ask questions and assume patient care.
--- NOTE | 2018-07-24 06:25 | NUR ---
Problems reprioritized. Patient report given, questions answered & plan of care reviewed with Mary PADILLA.
[2018-07-24] MEDS: ondansetron 4mg rapidly disintigrating tab PO PRN (06:26)
[2018-07-24 07:30] VITALS: BP 126/45
[2018-07-24] MEDS: lactobacillus rhamnosus 10,000 MMU CELLS/CAPSULE PO SCH ×2 (08:04→22:03)
[2018-07-24] MEDS: sevelamer carbonate 800mg tablet PO SCH ×3 (08:04→17:26)
[2018-07-24] MEDS: acarbose 50mg tablet PO SCH ×3 (08:04→17:25)
[2018-07-24] MEDS: hydrocortisone 1% cream 28gm TP SCH ×2 (08:05→20:00)
[2018-07-24] MEDS: losartan 50mg tablet PO SCH ×2 (08:05→22:03)
[2018-07-24] MEDS: atorvastatin 20mg tablet PO SCH (08:05)
[2018-07-24] MEDS: folic acid/vitamin B complex w/vitamin C 0.8mg tablet PO SCH (08:05)
[2018-07-24] MEDS: rivaroxaban 15mg tablet PO SCH (08:05)
[2018-07-24] MEDS: ferrous sulfate 325mg tablet PO SCH ×2 (08:05→17:25)
[2018-07-24] MEDS: aspirin 81mg tab.chew PO SCH (08:05)
[2018-07-24] MEDS: pantoprazole 40mg Tablet.DR PO SCH (08:05)
[2018-07-24] MEDS: lisinopril 20mg tablet PO SCH (08:05)
[2018-07-24] MEDS: loratadine 10mg tablet PO SCH (08:05)
[2018-07-24] MEDS: clotrimazole topical cream 15gm tube TP SCH ×2 (08:06→21:55)
[2018-07-24] MEDS: tetrahydrozoline 0.05% 15ml ophthalmic drops EACHEYE SCH (08:06)
[2018-07-24 11:00] VITALS: BP 136/49
[2018-07-24] MEDS: levoFLOXACIN 250mg tablet PO SCH (12:19)
--- NOTE | 2018-07-24 18:20 | NUR ---
Patient in room [facility]. I have received report from Mary Zuñiga and had the opportunity to ask questions and assume patient care. Addendum: 07/24/18 at 1907 by Pippa Ferrell RN Amended: Links added.
--- NOTE | 2018-07-24 18:20 | NUR ---
Patient in room [facility]. I have received report from Mary Zuñiga and had the opportunity to ask questions and assume patient care. Addendum: 07/24/18 at 1909 by Pippa Ferrell RN Amended: Links added.
--- NOTE | 2018-07-24 18:42 | NUR ---
Problems reprioritized. Patient report given, Pippa PADILLA questions answered & plan of care reviewed with .
--- NOTE | 2018-07-24 19:10 | NUR ---
pt a/o pleasant without complaints.
[2018-07-24 19:39] VITALS: BP 145/47
[2018-07-24] MEDS: gentamicin 0.1% topical ointment 15gm TP SCH (21:00)
--- NOTE | 2018-07-24 21:15 | NUR ---
pt awakened and given hs meds and accucheck done. no complaints of pain. av fistual right arm with gd bruit and thrill.
[2018-07-24] MEDS: gabapentin 100mg capsule PO SCH (21:50)
--- NOTE | 2018-07-24 23:17 | NUR ---
resting eyes closed without s&s of distress at this time.
[2018-07-25] VITALS: BP 135/52
--- NOTE | 2018-07-25 01:15 | NUR ---
resting eyes closed without changes at this time.
[2018-07-25] MEDS: ondansetron 4mg rapidly disintigrating tab PO PRN (02:53)
--- NOTE | 2018-07-25 02:54 | NUR ---
awoke nauseated and sweaty skin care done. hosp gown changed and medicated with sl zofran.
--- NOTE | 2018-07-25 04:11 | NUR ---
resting eyes closed no changes.
[2018-07-25 06:04] LABS: ALANINE AMINOTRANSFERASE 30 U/L (12-78); ALBUMIN 2.2 G/DL (3.4-5.0); ALBUMIN/GLOBULIN RATIO 0.6 (1.1-1.5); ALKALINE PHOSPHATASE 129 IU/L (46-116); ANION GAP 11 (8-16); ASPARTATE AMINO TRANSFERASE 24 U/L (10-37); BILIRUBIN,TOTAL 0.3 MG/DL (0.1-1.0); BLOOD UREA NITROGEN 38 MG/DL (7-18); BUN/CREATININE RATIO 7.8 (6.6-38.0); CALCIUM 7.8 MG/DL (8.5-10.1); CHLORIDE 97 MMOL/L (99-107); CREATININE 4.89 MG/DL (0.40-0.90); GLUCOSE 101 MG/DL (70-104); SODIUM 135 MMOL/L (135-145); TOTAL CARBON DIOXIDE 27.1 MMOL/L (24-32); eGFR 9 ML/MIN
--- NOTE | 2018-07-25 06:12 | NUR ---
Problems reprioritized. Patient report given, questions answered & plan of care reviewed with Sofía Zuñiga. Addendum: 07/25/18 at 0613 by Pippa Ferrlel RN Amended: Links added.
[2018-07-25 06:16] LABS: BASOPHILS % (AUTO) 0.1 % (0-1); EOSINOPHILS # (AUTO) 0.3 X10'3 (0-0.9); EOSINOPHILS % (AUTO) 1.8 % (0-6); HEMATOCRIT 32.4 % (35.0-45.0); HEMOGLOBIN 10.4 g/dl (12.0-16.0); LYMPHOCYTES # (AUTO) 1.1 X10'3 (1.1-4.8); LYMPHOCYTES % (AUTO) 7.9 % (21-51); MEAN CORPUSCULAR HEMOGLOBIN 26.8 PG (27.0-31.0); MEAN CORPUSCULAR HGB CONC 32.2 % (33.0-36.5); MEAN CORPUSCULAR VOLUME 83.3 FL (78-98); MEAN PLATELET VOLUME 8.5 FL (7.4-10.4); MONOCYTES # (AUTO) 1.8 X10'3 (0-0.9); MONOCYTES % (AUTO) 12.5 % (2-12); NEUTROPHILS # (AUTO) 11.3 X10'3 (1.8-7.7); NEUTROPHILS % (AUTO) 77.7 % (42-75); PLATELET COUNT 321 X10'3 (140-440); RED BLOOD COUNT 3.89 X10'6 (4.20-5.60); RED CELL DISTRIBUTION WIDTH 14.8 % (11.5-14.5); WHITE BLOOD COUNT 14.5 X10'3 (4.5-11.0)
--- NOTE | 2018-07-25 06:27 | NUR ---
Patient in room [facility]. I have received report from Pippa PADILLA and had the opportunity to ask questions and assume patient care.
[2018-07-25 07:00] VITALS: BP 132/66
[2018-07-25] MEDS: ferrous sulfate 325mg tablet PO SCH ×2 (07:57→17:52)
[2018-07-25] MEDS: aspirin 81mg tab.chew PO SCH (07:57)
[2018-07-25] MEDS: loratadine 10mg tablet PO SCH (07:57)
[2018-07-25] MEDS: sevelamer carbonate 800mg tablet PO SCH ×3 (07:57→17:52)
[2018-07-25] MEDS: atorvastatin 20mg tablet PO SCH (07:57)
[2018-07-25] MEDS: lactobacillus rhamnosus 10,000 MMU CELLS/CAPSULE PO SCH ×2 (07:57→20:26)
[2018-07-25] MEDS: lisinopril 20mg tablet PO SCH (07:58)
[2018-07-25] MEDS: folic acid/vitamin B complex w/vitamin C 0.8mg tablet PO SCH (07:58)
[2018-07-25] MEDS: rivaroxaban 15mg tablet PO SCH (07:58)
[2018-07-25] MEDS: losartan 50mg tablet PO SCH ×2 (07:58→20:26)
[2018-07-25] MEDS: pantoprazole 40mg Tablet.DR PO SCH (07:58)
[2018-07-25] MEDS: clotrimazole topical cream 15gm tube TP SCH ×2 (07:59→20:27)
[2018-07-25] MEDS: hydrocortisone 1% cream 28gm TP SCH ×2 (07:59→20:27)
[2018-07-25] MEDS: acarbose 50mg tablet PO SCH ×3 (08:03→17:53)
[2018-07-25] MEDS: tetrahydrozoline 0.05% 15ml ophthalmic drops EACHEYE SCH (10:28)
[2018-07-25 11:00] VITALS: BP 119/47
[2018-07-25] MEDS: levoFLOXACIN 250mg tablet PO SCH (11:47)
--- NOTE | 2018-07-25 18:14 | NUR ---
Patient in room [facility]. I have received report from Sofía Zuñiga and had the opportunity to ask questions and assume patient care. Addendum: 07/25/18 at 1814 by Pippa Ferrell RN Amended: Links added.
--- NOTE | 2018-07-25 18:25 | NUR ---
Problems reprioritized. Patient report given, questions answered & plan of care reviewed with Pippa PADILLA.
[2018-07-25 19:30] VITALS: BP 151/54
--- NOTE | 2018-07-25 20:15 | NUR ---
meds given and skin care done and prolapsed uterus replaced inside with ky jelly. pt tolerated fair.
[2018-07-25] MEDS: gabapentin 100mg capsule PO SCH (20:26)
--- NOTE | 2018-07-25 21:15 | NUR ---
resting eyes closed after hs care done withlien changes and pulled up in bed.
--- NOTE | 2018-07-25 23:08 | NUR ---
resting eyes closed no s&s of distress resting eyes closed.
[2018-07-25 23:33] VITALS: BP 127/67
--- NOTE | 2018-07-26 01:00 | NUR ---
resting eyes closed without s&s of distress at this time. appears comfortable.
--- NOTE | 2018-07-26 03:05 | NUR ---
resting without s&s of distress.
--- NOTE | 2018-07-26 04:17 | NUR ---
resting no changes.
--- NOTE | 2018-07-26 05:12 | NUR ---
resting eyes closed no changes.
[2018-07-26 05:59] LABS: BASOPHILS % (AUTO) 0.3 % (0-1); EOSINOPHILS # (AUTO) 0.3 X10'3 (0-0.9); EOSINOPHILS % (AUTO) 1.8 % (0-6); HEMATOCRIT 31.8 % (35.0-45.0); LYMPHOCYTES % (AUTO) 7.3 % (21-51); MEAN CORPUSCULAR HEMOGLOBIN 26.3 PG (27.0-31.0); MEAN CORPUSCULAR HGB CONC 31.6 % (33.0-36.5); MEAN PLATELET VOLUME 8.1 FL (7.4-10.4); MONOCYTES # (AUTO) 1.6 X10'3 (0-0.9); MONOCYTES % (AUTO) 11.5 % (2-12); NEUTROPHILS # (AUTO) 11.3 X10'3 (1.8-7.7); NEUTROPHILS % (AUTO) 79.1 % (42-75); PLATELET COUNT 333 X10'3 (140-440); RED BLOOD COUNT 3.82 X10'6 (4.20-5.60); RED CELL DISTRIBUTION WIDTH 14.8 % (11.5-14.5); WHITE BLOOD COUNT 14.2 X10'3 (4.5-11.0)
[2018-07-26 06:17] LABS: ALANINE AMINOTRANSFERASE 29 U/L (12-78); ALBUMIN 2.1 G/DL (3.4-5.0); ALBUMIN/GLOBULIN RATIO 0.6 (1.1-1.5); ALKALINE PHOSPHATASE 125 IU/L (46-116); ANION GAP 11 (8-16); ASPARTATE AMINO TRANSFERASE 20 U/L (10-37); BILIRUBIN,TOTAL 0.2 MG/DL (0.1-1.0); BLOOD UREA NITROGEN 50 MG/DL (7-18); BUN/CREATININE RATIO 8.6 (6.6-38.0); CALCIUM 7.6 MG/DL (8.5-10.1); CHLORIDE 98 MMOL/L (99-107); GLUCOSE 108 MG/DL (70-104); POTASSIUM 4.7 MMOL/L (3.5-5.1); SODIUM 135 MMOL/L (135-145); TOTAL CARBON DIOXIDE 26.4 MMOL/L (24-32); TOTAL PROTEIN 5.8 G/DL (6.4-8.2); eGFR 7 ML/MIN
--- NOTE | 2018-07-26 06:52 | NUR ---
Problems reprioritized. Patient report given, questions answered & plan of care reviewed with Olivia Zuñiga. Addendum: 07/26/18 at 0652 by Pippa Ferrell RN Amended: Links added.
[2018-07-26 07:00] VITALS: BP 125/45
--- NOTE | 2018-07-26 07:19 | NUR ---
Patient in room [facility]. I have received report from and had the opportunity to ask questions and assume patient care.
--- NOTE | 2018-07-26 07:20 | NUR ---
Patient in room [facility]. I have received report from vaishnavi rpieto and had the opportunity to ask questions and assume patient care.
[2018-07-26] MEDS ORDERED: LIDOcaine 1% (10mg/ml) 2ml vial SQ ONE (08:00)
[2018-07-26] MEDS ORDERED: normal saline 1000ml 250 ML IV PRN (08:00)
[2018-07-26] MEDS ORDERED: epoetin 20,000 units/ml inj IV ONE (08:00)
[2018-07-26] MEDS: tetrahydrozoline 0.05% 15ml ophthalmic drops EACHEYE SCH (08:35)
[2018-07-26] MEDS: acarbose 50mg tablet PO SCH ×3 (08:36→18:07)
[2018-07-26] MEDS: lactobacillus rhamnosus 10,000 MMU CELLS/CAPSULE PO SCH ×2 (08:36→21:25)
[2018-07-26] MEDS: folic acid/vitamin B complex w/vitamin C 0.8mg tablet PO SCH (08:37)
[2018-07-26] MEDS: rivaroxaban 15mg tablet PO SCH (08:37)
[2018-07-26] MEDS: lisinopril 20mg tablet PO SCH (08:37)
[2018-07-26] MEDS: atorvastatin 20mg tablet PO SCH (08:38)
[2018-07-26] MEDS: sevelamer carbonate 800mg tablet PO SCH ×3 (08:38→17:39)
[2018-07-26] MEDS: pantoprazole 40mg Tablet.DR PO SCH (08:38)
[2018-07-26] MEDS: losartan 50mg tablet PO SCH ×2 (08:38→21:25)
[2018-07-26] MEDS: aspirin 81mg tab.chew PO SCH (08:38)
[2018-07-26] MEDS: loratadine 10mg tablet PO SCH (08:38)
[2018-07-26] MEDS: hydrocortisone 1% cream 28gm TP SCH ×2 (08:41→21:28)
[2018-07-26] MEDS: clotrimazole topical cream 15gm tube TP SCH ×2 (08:41→21:28)
[2018-07-26] MEDS: ferrous sulfate 325mg tablet PO SCH ×2 (08:43→17:39)
[2018-07-26 11:20] LABS: HBSAG SCREEN Negative (Negative)
[2018-07-26 12:00] VITALS: BP 147/55
--- NOTE | 2018-07-26 18:27 | NUR ---
Problems reprioritized. Patient report given, questions answered & plan of care reviewed with Pat RN.
--- NOTE | 2018-07-26 18:30 | NUR ---
Patient in room [facility]. I have received report from RANDY Baker and had the opportunity to ask questions and assume patient care.
[2018-07-26 19:30] VITALS: BP 124/52
[2018-07-26] MEDS: gabapentin 100mg capsule PO SCH (21:25)
[2018-07-27] VITALS: BP 105/48
[2018-07-27 06:04] LABS: BASOPHILS # (AUTO) 0.1 X10'3 (0-0.2); BASOPHILS % (AUTO) 0.5 % (0-1); EOSINOPHILS # (AUTO) 0.4 X10'3 (0-0.9); EOSINOPHILS % (AUTO) 3.3 % (0-6); HEMATOCRIT 29.2 % (35.0-45.0); HEMOGLOBIN 9.5 g/dl (12.0-16.0); LYMPHOCYTES # (AUTO) 1.1 X10'3 (1.1-4.8); LYMPHOCYTES % (AUTO) 8.7 % (21-51); MEAN CORPUSCULAR HEMOGLOBIN 26.8 PG (27.0-31.0); MEAN CORPUSCULAR HGB CONC 32.4 % (33.0-36.5); MEAN CORPUSCULAR VOLUME 82.8 FL (78-98); MEAN PLATELET VOLUME 8.4 FL (7.4-10.4); MONOCYTES # (AUTO) 1.4 X10'3 (0-0.9); MONOCYTES % (AUTO) 11.8 % (2-12); NEUTROPHILS # (AUTO) 9.3 X10'3 (1.8-7.7); NEUTROPHILS % (AUTO) 75.7 % (42-75); PLATELET COUNT 313 X10'3 (140-440); RED BLOOD COUNT 3.53 X10'6 (4.20-5.60); RED CELL DISTRIBUTION WIDTH 15.7 % (11.5-14.5); WHITE BLOOD COUNT 12.3 X10'3 (4.5-11.0)
[2018-07-27 06:20] LABS: ALANINE AMINOTRANSFERASE 29 U/L (12-78); ALBUMIN/GLOBULIN RATIO 0.6 (1.1-1.5); ALKALINE PHOSPHATASE 113 IU/L (46-116); ANION GAP 8 (8-16); ASPARTATE AMINO TRANSFERASE 19 U/L (10-37); BILIRUBIN,TOTAL 0.3 MG/DL (0.1-1.0); BLOOD UREA NITROGEN 40 MG/DL (7-18); BUN/CREATININE RATIO 8.2 (6.6-38.0); CALCIUM 7.5 MG/DL (8.5-10.1); CHLORIDE 100 MMOL/L (99-107); CREATININE 4.88 MG/DL (0.40-0.90); GLUCOSE 117 MG/DL (70-104); POTASSIUM 4.8 MMOL/L (3.5-5.1); SODIUM 137 MMOL/L (135-145); TOTAL CARBON DIOXIDE 29.4 MMOL/L (24-32); TOTAL PROTEIN 5.6 G/DL (6.4-8.2); eGFR 9 ML/MIN
--- NOTE | 2018-07-27 06:24 | NUR ---
report given to RANDY Baker
--- NOTE | 2018-07-27 06:37 | NUR ---
Patient in room [facility]. I have received report from PAT RN and had the opportunity to ask questions and assume patient care.
[2018-07-27 07:00] VITALS: BP 125/49
[2018-07-27] MEDS: rivaroxaban 15mg tablet PO SCH (07:51)
[2018-07-27] MEDS: loratadine 10mg tablet PO SCH (07:51)
[2018-07-27] MEDS: folic acid/vitamin B complex w/vitamin C 0.8mg tablet PO SCH (07:51)
[2018-07-27] MEDS: aspirin 81mg tab.chew PO SCH (07:51)
[2018-07-27] MEDS: lactobacillus rhamnosus 10,000 MMU CELLS/CAPSULE PO SCH (07:51)
[2018-07-27] MEDS: ferrous sulfate 325mg tablet PO SCH (07:51)
[2018-07-27] MEDS: pantoprazole 40mg Tablet.DR PO SCH (07:51)
[2018-07-27] MEDS: losartan 50mg tablet PO SCH (07:51)
[2018-07-27] MEDS: atorvastatin 20mg tablet PO SCH (07:51)
[2018-07-27 07:52] VITALS: BP_SYST 125
[2018-07-27] MEDS: hydrocortisone 1% cream 28gm TP SCH (07:52)
[2018-07-27] MEDS: lisinopril 20mg tablet PO SCH (07:52)
[2018-07-27] MEDS: clotrimazole topical cream 15gm tube TP SCH (07:52)
[2018-07-27] MEDS: tetrahydrozoline 0.05% 15ml ophthalmic drops EACHEYE SCH (07:55)
[2018-07-27] MEDS: acarbose 50mg tablet PO SCH (07:55)
[2018-07-27] MEDS: sevelamer carbonate 800mg tablet PO SCH (07:55)
--- NOTE | 2018-07-27 11:08 | NUR ---
patient to be seen by Dr Kramer. All arrangements made for hemodialysis, starting wednesday. patient appears stable for transfer. awaiting ride.
--- NOTE | 2018-07-27 12:13 | NUR ---
Francisco J came to [place]. Report given to [place] RN at bedside. patient DC home with all instructions given to her and RN. DC home via private car to [place] . 1215hrs
--- NOTE | 2018-07-27 15:17 | NUR ---
Reassessment: Documented PO intake fluctuates average intake mostly 50-75% meeting nutrient needs. noted pt is eating well. LBM 07/26. Will continue to follow.. Recommend: 1. Continue renal, carb controlled diet 2. Wt per rx Addendum: 07/27/18 at [address] Amended: Links added. Addendum: 07/27/18 at [address] I have reviewed and approve of note by Donor Services Team Leader. Mary Harrison RD
== END 2018-07-27 12:08 | DRG 871 ==
LOC: ER 21:28 → ED HOLD 07-09 08:22 → SUR 3N 07-09 12:46
PROVIDERS: ADMIT Emergency Medicine; ATTEND Internal Medicine Critical Care Medicine
PROC: BW211ZZ Computerized Tomography (CT Scan) of Abdomen and Pelvis using Low Osmolar Contrast (ICD-10-PCS; principal; 2018-07-09)
PROC: 3E1M39Z Irrigation of Peritoneal Cavity using Dialysate, Percutaneous Approach (ICD-10-PCS; 2018-07-10)
PROC: 3E1M39Z Irrigation of Peritoneal Cavity using Dialysate, Percutaneous Approach (ICD-10-PCS; 2018-07-12)
PROC: 3E1M39Z Irrigation of Peritoneal Cavity using Dialysate, Percutaneous Approach (ICD-10-PCS; 2018-07-17)
PROC: 5A1D70Z Performance of Urinary Filtration, Intermittent, Less than 6 Hours Per Day (ICD-10-PCS; 2018-07-21)
PROC: 5A1D70Z Performance of Urinary Filtration, Intermittent, Less than 6 Hours Per Day (ICD-10-PCS; 2018-07-23)
PROC: 5A1D70Z Performance of Urinary Filtration, Intermittent, Less than 6 Hours Per Day (ICD-10-PCS; 2018-07-26)
DX: A41.9 Sepsis, unspecified organism (principal); N18.6 End stage renal disease; I12.0 Hypertensive chronic kidney disease with stage 5 chronic kidney disease or end stage renal disease; N10 Acute pyelonephritis; J90 Pleural effusion, not elsewhere classified; B96.1 Klebsiella pneumoniae [K. pneumoniae] as the cause of diseases classified elsewhere; E11.22 Type 2 diabetes mellitus with diabetic chronic kidney disease; K64.9 Unspecified hemorrhoids; N13.9 Obstructive and reflux uropathy, unspecified; E11.40 Type 2 diabetes mellitus with diabetic neuropathy, unspecified; N81.4 Uterovaginal prolapse, unspecified; E78.5 Hyperlipidemia, unspecified; I95.9 Hypotension, unspecified; R33.9 Retention of urine, unspecified; Z88.8 Allergy status to other drugs, medicaments and biological substances; Z88.5 Allergy status to narcotic agent; Z91.013 Allergy to seafood; Z79.899 Other long term (current) drug therapy; Z79.01 Long term (current) use of anticoagulants; Z79.4 Long term (current) use of insulin; Z79.82 Long term (current) use of aspirin
CPT/HCPCS: 36415; 74177; 80053; 81001; 82948; 83036; 83605; 83735; 84100; 84145; 85025; 85610; 87040; 87070; 87077; 87088; 87186; 87205; 87340; 89051; 90935; 96365; 96368; 96375; 97110; 97116; 97161; 97530; 99285; G0257; G0378; J0885; J1644; J1815; J1956; J2405; J2543; J3370; J3490; Q9967